=== PATIENT | male | born 1945 | race Caucasian/White ===

== ENCOUNTER 2019-10-04 12:23 | Outpatient (CLI) | payer OTHER, SELFPAY ==
--- NOTE | 2019-10-04 12:35 | CT_ITS ---
WS: [id number] CT ABDOMEN PELVIS TECHNIQUE: Noncontrast CT of the abdomen and pelvis with coronal and sagittal reformatted images. CLINICAL INFORMATION: F/U ON MASS OR CYST COMPARISON: CT January 01, [address] DLP: 1078.[address] scans at [facility] use at least one of these dose optimization techniques: automat ed exposure control; mA and/or kV adjustment per patient size (includes targeted exams where dose is matched to clinical indication); or iterative reconstruction. FINDINGS: FINDINGS: Normal liver. Normal portal vein and splenic vein. Tiny right hepatic cyst unchanged. Small splenule. Lung bases are well aerated. Normal gastroesophageal junction. Adrenal glands are normal. Normal pancreas. Adrenal glands are normal. Left renal cortical atrophy. Bilateral renal cysts largest in the right measuring 3.1 x 3.1 cm. No hydronephrosis. Smaller left re nal cysts the largest measuring 10 mm unchanged. Dense vascular calcification. Normal caliber abdomin al aorta. Dense mesenteric calcification at the celiac and SMA origins. Normal gallbladder. No periaortic lymphadenopathy. Normal caliber small and large bowel. No evidence of high-grade obstruction. Enlarged calcified prostate measuring 4.1 x 4.8 cm. Recommend correlation PSA. No inguinal lymphadenopathy. Moderate spondylitic changes lumbar spine. Vacuum disc phenomenon L 3-L5. CT/CT abdomen pelvis wo con [id number] IMPRESSION: 1. Bilateral renal cysts largest in the right measuring 3.1 x 3.1 cm a few mil limeters larger than previous 2. Stable small left renal cysts largest measuring 10 mm unchanged. 3. No hydronephrosis in either kidney. Stable left renal cortical atrophy 4. Markedly dense vascular calcification with dense calcification at the owen c and SMA origin. 5. Enlarged calcified prostate. Recommend correlation PSA. 6. Diffuse bladder wall thickening likely due to bladder outlet obstruction un changed. 7. Otherwise no significant changes from previous.
== END 2019-10-04 12:24 | disposition home or self-care (01) ==
PROVIDERS: Visit Provider Emergency Medicine Emergency Medical Services
DX: N28.1 Cyst of kidney, acquired (principal); N40.0 Benign prostatic hyperplasia without lower urinary tract symptoms
CPT/HCPCS: 74176

== ENCOUNTER 2020-04-30 09:49 | Emergency (ER) | payer OTHER, MEDICARE, SELFPAY ==
[2020-04-30 09:51] VITALS: BP 177/115; PULSE 73; RESP 16; TEMP 36.8; O2SAT 97; BMI 27.2
[2020-04-30 10:07] VITALS: BP 152/101; PULSE 80; RESP 20; O2SAT 95
--- NOTE | 2020-04-30 10:11 | CT_ITS ---
WS: [id number] CT CERVICAL SPINE HISTORY: R arm weakness, numbness TECHNIQUE: Contiguous 2.5 mm axial imaging performed through the entire cervical spine. Sagittal and coronal reformats also performed. All CT scans at [facility] use at least one of these do se optimization techniques: automated exposure control; mA and/or kV adjustment per patient size (inc ludes targeted exams where dose is matched to clinical indication); or iterative reconstruction. DLP: 839.14 mGy.cm COMPARISON: None available. Posterior cervical alignment is normal. Severe degenerative disc disease and osteophytosis throughout the cervical spine. No cervical spine fractures. C1 and C2 lateral masses are aligned. The odontoid is intact. Craniocervical junction is normally aligned. Marked bilateral facet joint arthritis with m ultilevel areas of moderate to severe central and foraminal stenosis. Unfused posterior arch of C1. Mild anterior wedging of T1 and T3. Age indeterminate fractures. No acute fracture line is identified . CT/CT cervical spin wo con* [id number] IMPRESSION: 1. No acute cervical spine fracture identified. 2. Moderate to severe multilevel central and foraminal stenosis due to combina tion of disc disease, osteophytosis and facet arthritis. 3. Mild anterior wedging of T1 and T3. Age indeterminate fractures.
--- NOTE | 2020-04-30 10:11 | CT_ITS ---
WS: [id number] CT HEAD NONCONTRAST HISTORY: R arm weakness TECHNIQUE: Contiguous axial imaging performed through the brain in 2.5 mm imaging. Bone and soft tiss ue windows. Sagittal and coronal reformats reviewed. All CT scans at [facility] use at ast one of these dose optimization techniques: automated exposure control; mA and/or kV adjustment pe r patient size (includes targeted exams where dose is matched to clinical indication); or iterative r econstruction. DLP: 850.5 mGy.cm COMPARISON: None available. No acute intracranial hemorrhage, midline shift or mass effect. Mild atrophy with moderate to severe chronic microvascular ischemic disease. Small lacunar infarcts i n the caudate heads. Small lacunar infarcts in the external capsules bilaterally. Ventricles: Normal size with no hydrocephalus. No inferior displacement of cerebellar tonsils. Paranasal sinuses: Postsurgical changes along the floor of the RIGHT orbit and superior maxillary sin us. Mastoid air cells: Well pneumatized. Calvarium and scalp: Skull is intact with no soft tissue edema or swelling. Dense calcification in the intracranial carotid arteries. CT/CT head wo con* [id number] IMPRESSION: 1. No acute intracranial hemorrhage or edema. 2. Mild atrophy with advanced chronic microvascular ischemic disease and bilat eral lacunar infarcts.
--- NOTE | 2020-04-30 10:15 | ECG_ITS ---
[facility] Test Date: 2020-04-30 Pat Name: Jaydon Yousif Department: Room: Gender: Male Director Of Student Services: : 1945 Requested By: Elio Claros Order Number: [id number] Reading MD: AVERY RAMACHANDRAN Measurements Intervals [place] Rate: 78 P: 28 NC: 165 QRS: 48 QRSD: 105 T: 28 QT: 399 QTc: 455 Interpretive Statements SINUS RHYTHM No previous ECG available for comparison Electronically Signed On 04-30-2020 18:17:34 BROOM BUILDER by AVERY RAMACHANDRAN [id number]
[2020-04-30 10:31] LABS: Basophils % 0.7 %; Eosinophils # 0.1 10^3/uL (0.0-0.8); Eosinophils % 2.2 %; Hematocrit 42.5 % (42.0-52.0); Hemoglobin 14.8 g/dL (11.7-16.6); Lymphocytes # 1.1 10^3/uL (0.8-4.8); Lymphocytes % 17.4 %; Mean Corpuscular HGB Conc 34.8 g/dL (30.0-36.0); Mean Corpuscular Hemoglobin 31.3 pg (28.0-34.0); Mean Corpuscular Volume 89.9 fL (80-94); Mean Platelet Volume 10.8 fL (7.4-10.4); Monocytes # 0.4 10^3/uL (0.2-0.9); Monocytes % 7.1 %; Neutrophils # 4.37 10^3/uL (1.8-7.7); Neutrophils % 72.3 %; Nucleated Red Blood Cells % 0 %; Platelet Count 153 10^3/cmm (130-400); Red Blood Count 4.73 10^6/uL (4.1-5.3); Red Cell Distribution Width 13.1 % (12.1-15.1)
[2020-04-30 10:32] LABS: INR 1.03 (0.8-1.2); Partial Thromboplastin Time 25.3 SECONDS (23.9-36.7)
[2020-04-30 10:39] LABS: Alanine Aminotransferase 13 U/L (0-41); Albumin Level 4.1 g/dL (3.5-5.2); Alkaline Phosphatase 80 IU/L (40-130); Aspartate Amino Transferase 16 U/L (0-40); Blood Urea Nitrogen 24 mg/dL (8-23); Calcium 8.8 mg/dL (8.5-10.5); Carbon Dioxide 24 mmol/L (22-29); Chloride 104 mmol/L (98-107); Globulin 2.5 g/dL (1.3-4.6); Glucose 132 mg/dL (65-115); Osmolality Calculated 292 mOsm/kg (285-295); Sodium 138 mmol/L (136-145); Total Bilirubin 0.8 mg/dL (0.15-1.2); Total Protein 6.6 g/dL (6.6-8.7)
[2020-04-30 10:45] LABS: Anion Gap 13.6 (5-19); Potassium 3.6 mmol/L (3.5-5.1)
--- NOTE | 2020-04-30 11:30 | ED_ITS ---
HPI - Neuro Symptoms/Deficit General: Chief Complaint: Neuro Symptoms/Deficit Stated Complaint: TREMORS/ UNSTEADY ON HIS FEET/VISION ISSUES Time Seen by Provider: 04/30/20 09:53 History of Present Illness: HPI Narrative: 74-year-old male comes in complaining of tremor and weakness in the right arm this is been going on for several weeks. Is also noticed a little bit of change in gait. His biggest issue is actually in the R arm. He denies difficulty with speech or swallowing. Is becoming progressively worse. He was seen at the [place] some plain film imaging was done. He has not seen a neurologist. He has not had any chest pain has not had any difficulty speech swallowing gait or balance. Onset (ago): week(s) Location: right arm Severity: moderate Quality: numb and tingling Relieving factors: none Exacerbating factors: none Context: gradual onset On Anticoagulants: No Associated symptoms: Deny chest pain, cough, diaphoresis, fevers/chills, headache(s), anorexia, malaise, nausea, seizures, short of breath, syncope, tingling, vertigo, vomiting or weakness Treatments Prior to Arrival: none Review of Systems Const: Denies: malaise or diaphoresis ENMT: Denies: throat pain, ear or mastoid pain, nasal discharge or nasal congestion Card: Denies: chest pain or syncope Resp: Denies: dyspnea, productive cough or non-productive cough GI: Denies: nausea or vomiting : Denies: flank pain, dysuria, urinary frequency or urinary urgency Skin/Breast: Denies: rash or pruritus Neuro: Denies: headache(s) or vertigo Physical Exam Const: COMMON NORMALS: no acute distress GENERAL APPEARANCE: cooperative and comfortable HENMT: COMMON NORMALS: normocephalic, atraumatic and hearing grossly normal bilaterally HEAD & SCALP: normocephalic and atraumatic Eye: COMMON NORMALS: Equal, round and reactive pupils present, EOMs intact bilaterally, conjunctivae normal and no scleral icterus CONJUNCTIVA: Yes conjunctivae normal PUPIL: Yes Equal, round and reactive pupils present Neck/C-Spine: COMMON NORMALS: full ROM, no lymphadenopathy, supple and no JVD Lymph: LYMPHATIC: no lymphadenopathy noted and no lymphedema noted Resp: COMMON NORMALS: normal respiratory effort, No retractions, No use of accessory muscles and clear to auscultation bilaterally AUSCULTATION: clear to auscultation bilaterally Cardio: COMMON NORMALS: no JVD, regular rate, regular rhythm and No murmurs present (Cardio) RATE: regular rate RHYTHM: regular rhythm GI: COMMON NORMALS: Soft to palpation and No hepatosplenomegaly present AUSCULTATION: Yes normoactive bowel sounds PALPATION: Yes Soft to palpation, No Tenderness to palpation present (GI), No Guarding due to palpation present (GI) and Yes No hepatosplenomegaly present Extremity: COMMON NORMALS: normal to inspection, capillary refill normal, no clubbing, cyanosis or edema, no calf tenderness and no pedal edema Skin: COMMON NORMALS: no rashes or lesions noted GENERAL SKIN EXAM: no rashes or lesions noted Course Vital Signs: Vital signs: Vital Signs Temperature 98.3 F 04/30/20 09:51 Pulse Rate 89 04/30/20 12:51 Respiratory Rate 18 04/30/20 12:51 Blood Pressure 160/86 04/30/20 12:51 Pulse Oximetry 96 04/30/20 12:51 MDM - Neuro Symptoms/Deficit MDM Narrative: Medical decision making narrative: CT head is normal his only symptoms are in his right arm he actually has some contractures that are difficult to get him to fully extend he has some sensation loss as well. Is been going on for months. Suspect is a cervical nerve root compression based on his presentation and his imaging findings of the CT of his neck. We will get him set up for an MRI and have him follow-up with Dr. Gotti and Dr. Yoon return if he has any worsening problems. Lab Data: Labs: Lab Results 04/30/20 04/30/20 04/30/20 Range/Units 09:58 09:58 09:58 WBC 6.0 (4.0-10.0) 10^3/ uL RBC 4.73 (4.1-5.3) 10^6/u L Hgb 14.8 (11.7-16.6) g/dL Hct 42.5 (42.0-52.0) % MCV 89.9 (80-94) fL MCH 31.3 (28.0-34.0) pg MCHC 34.8 (30.0-36.0) g/dL RDW 13.1 (12.1-15.1) % Plt Count 153 (130-400) 10^3/c mm MPV 10.8 H (7.4-10.4) fL Neut % (Auto) 72.3 % Lymph % (Auto) 17.4 % Canadian % (Auto) 7.1 % Eos % (Auto) 2.2 % Baso % (Auto) 0.7 % Neut # (Auto) 4.37 (1.8-7.7) 10^3/u L Lymph # (Auto) 1.1 (0.8-4.8) 10^3/u L Canadian # (Auto) 0.4 (0.2-0.9) 10^3/u L Eos # (Auto) 0.1 (0.0-0.8) 10^3/u L Baso # (Auto) 0.0 (0.0-0.1) 10^3/u L Nucleated RBC % (a uto) 0 % Nucleated RBCs # 0.0 /100WBC PT 13.80 (12.1-14.9) SECO NDS INR 1.03 (0.8-1.2) APTT 25.3 (23.9-36.7) SECO NDS Sodium 138 (136-145) mmol/L Potassium 3.6 (3.5-5.1) mmol/L Chloride 104 (98-107) mmol/L Carbon Dioxide 24 (22-29) mmol/L Anion Gap 13.6 (5-19) BUN 24 H (8-23) mg/dL Creatinine 1.6 H (0.7-1.2) mg/dL GFR Calculation Not Reportable Glucose 132 H (65-115) mg/dL Calculated Osmolal ity 292 (285-295) mOsm/k g Calcium 8.8 (8.5-10.5) mg/dL Total Bilirubin 0.8 (0.15-1.2) mg/dL AST 16 (0-40) U/L ALT 13 (0-41) U/L Alkaline Phosphata se 80 (40-130) IU/L Total Protein 6.6 (6.6-8.7) g/dL Albumin 4.1 (3.5-5.2) g/dL Globulin 2.5 (1.3-4.6) g/dL Urine Color (Yellow) Urine Appearance (CLEAR) Urine pH (5-7) Ur Specific Gravit y (1.005-1.030) Urine Protein (Negative) Urine Glucose (UA) (Normal) Urine Ketones (Negative) Urine Blood (Negative) Urine Nitrate (Negative) Urine Bilirubin (Negative) Urine Urobilinogen (Negative) mg/dL Ur Leukocyte Pam ase (Negative) Urine RBC (0-2) /hpf Urine WBC (0-5) /hpf Ur Squamous Epith Cells (0-5) /hpf Amorphous Sediment Urine Bacteria (NONE) /hpf Hyaline Casts /lpf Urine Mucus /hpf Urine Opiates Scre en (Negative) ng/mL Ur Barbiturates Sc reen (Negative) ng/mL Ur Phencyclidine S crn (Negative) ng/mL Ur Amphetamines Sc reen (Negative) ng/mL U Benzodiazepines Scrn (Negative) ng/mL Urine Cocaine Scre en (Negative) ng/mL U Marijuana (THC) Screen (Negative) ng/mL 04/30/20 04/30/20 Range/Units 11:45 11:45 WBC (4.0-10.0) 10^3/ uL RBC (4.1-5.3) 10^6/u L Hgb (11.7-16.6) g/dL Hct (42.0-52.0) % MCV (80-94) fL MCH (28.0-34.0) pg MCHC (30.0-36.0) g/dL RDW (12.1-15.1) % Plt Count (130-400) 10^3/c mm MPV (7.4-10.4) fL Neut % (Auto) % Lymph % (Auto) % Canadian % (Auto) % Eos % (Auto) % Baso % (Auto) % Neut # (Auto) (1.8-7.7) 10^3/u L Lymph # (Auto) (0.8-4.8) 10^3/u L Canadian # (Auto) (0.2-0.9) 10^3/u L Eos # (Auto) (0.0-0.8) 10^3/u L Baso # (Auto) (0.0-0.1) 10^3/u L Nucleated RBC % (a uto) % Nucleated RBCs # /100WBC PT (12.1-14.9) SECO NDS INR (0.8-1.2) APTT (23.9-36.7) SECO NDS Sodium (136-145) mmol/L Potassium (3.5-5.1) mmol/L Chloride (98-107) mmol/L Carbon Dioxide (22-29) mmol/L Anion Gap (5-19) BUN (8-23) mg/dL Creatinine (0.7-1.2) mg/dL GFR Calculation Glucose (65-115) mg/dL Calculated Osmolal ity (285-295) mOsm/k g Calcium (8.5-10.5) mg/dL Total Bilirubin (0.15-1.2) mg/dL AST (0-40) U/L ALT (0-41) U/L Alkaline Phosphata se (40-130) IU/L Total Protein (6.6-8.7) g/dL Albumin (3.5-5.2) g/dL Globulin (1.3-4.6) g/dL Urine Color Yellow (Yellow) Urine Appearance Clear (CLEAR) Urine pH 5 (5-7) Ur Specific Gravit y 1.020 (1.005-1.030) Urine Protein Trace (Negative) Urine Glucose (UA) Norm (Normal) Urine Ketones 1+ H (Negative) Urine Blood Neg (Negative) Urine Nitrate Negative (Negative) Urine Bilirubin Neg (Negative) Urine Urobilinogen 1 H (Negative) mg/dL Ur Leukocyte Pam ase Negative (Negative) Urine RBC 0-4 H (0-2) /hpf Urine WBC 0-4 H (0-5) /hpf Ur Squamous Epith Cells 0-4 H (0-5) /hpf Amorphous Sediment Not Reportable Urine Bacteria Trace (NONE) /hpf Hyaline Casts 0-4 H /lpf Urine Mucus 1+ /hpf Urine Opiates Scre en Negative (Negative) ng/mL Ur Barbiturates Sc reen Negative (Negative) ng/mL Ur Phencyclidine S crn Negative (Negative) ng/mL Ur Amphetamines Sc reen Negative (Negative) ng/mL U Benzodiazepines Scrn Negative (Negative) ng/mL Urine Cocaine Scre en Negative (Negative) ng/mL U Marijuana (THC) Screen Negative (Negative) ng/mL Discharge Plan Discharge Patient Disposition: Home Clinical Impression: Cervical nerve root compression, HTN (hypertension) Condition: Stable Prescriptions: New amlodipine 5 mg tablet 5 mg PO DAILY Qty: 30 RF: 0 lisinopril 10 mg tablet 10 mg PO DAILY Qty: 30 RF: 0 aspirin 81 mg tablet,delayed release (DR/EC) 81 mg PO DAILY Qty: 30 RF: 0 Discharge Orders: Discharge ED (Routine); Ordered 04/30/20 Ordered By: Elio Hunter Discharge Diet: Usual diet Discharge Activity: Increase activity as tolerated Patient Instructions: Opioid Safety Activity Restrictions/Additional Instructions: His management will call to set up a MRI of the head and neck. They will also help you arrange for follow-up appointments with Dr. Yoon and Dr. Gotti. Return if you have further problems. Recheck with your primary care doctor within a week to reevaluate blood pressure. Coding Level of Care Code ED Geophysical Operator for Kae Osuna
[2020-04-30 11:40] VITALS: BP 152/96; PULSE 86; RESP 20; O2SAT 99
[2020-04-30 12:17] LABS: Amphetamines Screen Urine Negative (Negative); Barbiturates Screen Urine Negative (Negative); Benzodiazepines Screen Urine Negative (Negative); Cocaine Screen Urine Negative (Negative); Opiate Screen Urine Negative (Negative); PCP Screen Urine Negative (Negative); THC Screen Urine Negative (Negative)
[2020-04-30 12:20] LABS: Blood Urine Neg (Negative); Glucose Urine UA Norm (Normal); Ketones Urine 1+ (Negative); Protein Urine Trace (Negative); Urine Appearance Clear (CLEAR); Urine Color Yellow (Yellow); pH Urine 5 (5-7)
[2020-04-30 12:21] LABS: Add Urine Microscopic? YES; Bacteria Urine TRACE /hpf; Bilirubin Urine Neg (Negative); Hyaline Casts Urine 0-4 /lpf; Leukocyte Esterase Urine Negative (Negative); Mucus Urine 1+ /hpf; Nitrate Urine Negative (Negative); RBC Urine 0-4 /hpf (0-2); Squamous Epithelial Cell Urine 0-4 /hpf (0-5); Urobilinogen Urine 1 mg/dL (Negative); WBC Urine 0-4 /hpf (0-5)
--- NOTE | 2020-04-30 12:32 | DCPLANNER ---
distribution warehouse manager was asked to schedule an out patient MRI of head and neck for patient and follow up appointments for patient with Dr. Gotti and Dr. Yoon. distribution warehouse manager faxed signed order to centralized scheduling, will call for appointment information. After the MRI is scheduled, caser in will call the offices of Dr. Gotti and Dr. Yoon and schedule follow up appointments for patient with both physicians.
[2020-04-30 12:51] VITALS: BP 160/86; PULSE 89; RESP 18; O2SAT 96
--- NOTE | 2020-05-01 15:47 | DCPLANNER ---
Addendum entered by Ida Kasper 05/11/20 12:05: position classification manager was told that the MRI scheduled for May 18 would need to be cancelled due to patient having metal in his body. position classification manager called centralized scheduling and cancelled the MRI. Original Note: Patient has an MRI of head and neck scheduled for Monday, May 18, 2020 the head is at 3:15 and the neck is scheduled for 1:45. Centralized scheduling will call patient with appointment information. position classification manager called the ortho clinic, spoke with Stefania, gave patients information to the clinic, informed clinic that it would need to be scheduled after the MRI / MRA that is scheduled for May 18. position classification manager called the office of Dr. Gotti, to speak with Nyla Harris, to give clinic patients information. position classification manager was unable to speak with Nyla, a voicemail was left with patients information for a follow up appointment.
--- NOTE | 2020-05-06 16:29 | DCPLANNER ---
Patient has a follow up appointment scheduled for May at 11:[address] Gotti. Clinic will call patient with appointment information. Patient has a follow up appointment scheduled for Monday, May 25, 2020 at 11:[address] Yoon at [facility]. Clinic will call patient with appointment information.
--- NOTE | 2020-06-03 15:14 | DCPLANNER ---
Patients appointments were cancelled.
== END 2020-04-30 12:53 | disposition home or self-care (01) ==
PROVIDERS: Emergency Provider Family Medicine
DX: G54.2 Cervical root disorders, not elsewhere classified (principal); I10 Essential (primary) hypertension; Z79.82 Long term (current) use of aspirin; R53.1 Weakness; Z79.899 Other long term (current) drug therapy
CPT/HCPCS: 70450; 72125; 80053; 80306; 81001; 85025; 85610; 85730; 93005; 99284

== ENCOUNTER 2020-05-11 10:31 | Inpatient (IN) | payer OTHER, MEDICARE, SELFPAY ==
[2020-05-11] VITALS (9 sets, daily range): BP systolic 132–183; BP diastolic 73–102; PULSE 70–82; RESP 16–20; TEMP 36.3–36.6; O2SAT 95–99; BMI 27.2
--- NOTE | 2020-05-11 11:16 | ED_ITS ---
HPI - Neuro Symptoms/Deficit General: Chief Complaint: Neuro Symptoms/Deficit Stated Complaint: SHAKING Time Seen by Provider: 05/11/20 10:42 History of Present Illness: HPI Narrative: 74-year-old male presents with complaints of right and left arm tremor and weakness. He was seen for this 10 days ago he had it for several weeks at that time head and neck CT were done head CT did not show anything acute or subacute neck CT showed some potential cervical disc disease. He was discharged home advised follow-up with primary care. We will schedule him for outpatient MRI of the head and neck which are not yet completed. he describes his symptoms as worsening, now including the R arm. He as fallen multiple times at home and is having gait instability/shuffling gait. Is also geting headaches at times. Onset (ago): week(s) Location: other (tremor right arm) History of same: Yes Quality: weak, numb and tingling Relieving factors: none Exacerbating factors: none Context: gradual onset On Anticoagulants: No Associated symptoms: Deny chest pain, cough, diaphoresis, fevers/chills, headache(s), anorexia, malaise, nausea, seizures, short of breath, syncope, tingling, vertigo, vomiting or weakness Treatments Prior to Arrival: other medication Review of Systems Const: Denies: malaise ENMT: Denies: throat pain, ear or mastoid pain, nasal discharge or nasal congestion Card: Denies: chest pain or syncope Resp: Denies: dyspnea, productive cough or non-productive cough GI: Denies: nausea : Denies: flank pain, dysuria, urinary frequency or urinary urgency Skin/Breast: Denies: rash or pruritus Neuro: Denies: headache(s) or vertigo PFSH ED PFSH: Medical History Bilateral renal cysts HTN (hypertension) Hyperlipemia Low back pain Sciatica Surgical History H/O knee surgery H/O partial nephrectomy History of facial surgery Family History Father , [place] CAD (coronary artery disease) Social History (Reviewed 05/14/20 @ 09:52 by MEHRDAD Bernstein Smoking and tobacco status: current every day smoker Alcohol intake: never Substance/Drug Use: former Date of last use: Long time ago. Marijuana. Household members: none Marital status: Current occupational status: retired Physical Exam Const: COMMON NORMALS: no acute distress GENERAL APPEARANCE: cooperative and comfortable ORIENTATION/CONSCIOUSNESS: Yes awake, Yes oriented to person, Yes oriented to place and Yes oriented to time HENMT: COMMON NORMALS: normocephalic, atraumatic and hearing grossly normal bilaterally HEAD & SCALP: normocephalic and atraumatic Neck/C-Spine: COMMON NORMALS: no JVD Resp: COMMON NORMALS: normal respiratory effort, No retractions, No use of accessory muscles and clear to auscultation bilaterally AUSCULTATION: clear to auscultation bilaterally Cardio: COMMON NORMALS: no JVD, regular rate, regular rhythm and No murmurs present (Cardio) RATE: regular rate RHYTHM: regular rhythm GI: COMMON NORMALS: Soft to palpation and No hepatosplenomegaly present AUSCULTATION: Yes normoactive bowel sounds PALPATION: Yes Soft to palpation, No Tenderness to palpation present (GI), No Guarding due to palpation present (GI) and Yes No hepatosplenomegaly present Extremity: COMMON NORMALS: normal to inspection, capillary refill normal, no clubbing, cyanosis or edema, no calf tenderness and no pedal edema Neuro: SENSORIUM/ORIENTATION: Yes oriented to person, Yes oriented to place and Yes oriented to time Skin: COMMON NORMALS: no rashes or lesions noted GENERAL SKIN EXAM: no rashes or lesions noted Course Vital Signs: Vital signs: Vital Signs Temperature 97.6 F 05/15/20 15:06 Pulse Rate 97 05/15/20 15:06 Respiratory Rate 17 05/15/20 15:06 Blood Pressure 155/92 05/15/20 15:06 Pulse Oximetry 94 05/15/20 15:06 MDM - Neuro Symptoms/Deficit MDM Narrative: Medical decision making narrative: Neurology consult done in the ER. I was concerned the patient may have a cervical stenosis neurology suspects something more central will admit and proceed with further work-up orders written Dr. Sesay attending. Lab Data: Labs: Lab Results 05/11/20 05/11/20 05/11/20 Range/Units 12:00 12:00 12:00 WBC 6.3 (4.0-10.0) 10^3/ uL RBC 4.85 (4.1-5.3) 10^6/u L Hgb 15.5 (11.7-16.6) g/dL Hct 44.0 (42.0-52.0) % MCV 90.7 (80-94) fL MCH 32.0 (28.0-34.0) pg MCHC 35.2 (30.0-36.0) g/dL RDW 13.5 (12.1-15.1) % Plt Count 153 (130-400) 10^3/c mm MPV 10.2 (7.4-10.4) fL Neut % (Auto) 74.9 % Lymph % (Auto) 16.2 % Meagher % (Auto) 7.0 % Eos % (Auto) 1.1 % Baso % (Auto) 0.5 % Neut # (Auto) 4.68 (1.8-7.7) 10^3/u L Lymph # (Auto) 1.0 (0.8-4.8) 10^3/u L Meagher # (Auto) 0.4 (0.2-0.9) 10^3/u L Eos # (Auto) 0.1 (0.0-0.8) 10^3/u L Baso # (Auto) 0.0 (0.0-0.1) 10^3/u L Nucleated RBC % (a uto) 0 % Nucleated RBCs # 0.0 /100WBC Sodium 139 (136-145) mmol/L Potassium 4.0 (3.5-5.1) mmol/L Chloride 102 (98-107) mmol/L Carbon Dioxide 26 (22-29) mmol/L Anion Gap 15.0 (5-19) BUN 23 (8-23) mg/dL Creatinine 1.8 H (0.7-1.2) mg/dL GFR Calculation Not Reportable Glucose 108 (65-115) mg/dL Calculated Osmolal ity 292 (285-295) mOsm/k g Calcium 9.0 (8.5-10.5) mg/dL Total Bilirubin 0.8 (0.15-1.2) mg/dL AST 18 (0-40) U/L ALT 13 (0-41) U/L Alkaline Phosphata se 74 (40-130) IU/L Total Protein 6.9 (6.6-8.7) g/dL Albumin 4.2 (3.5-5.2) g/dL Globulin 2.7 (1.3-4.6) g/dL Vitamin B12 (232-1245) pg/mL Folate 11.2 (4.5-32.2) ng/mL Urine Color (Yellow) Urine Appearance (CLEAR) Urine pH (5-7) Ur Specific Gravit y (1.005-1.030) Urine Protein (Negative) Urine Glucose (UA) (Normal) Urine Ketones (Negative) Urine Blood (Negative) Urine Nitrate (Negative) Urine Bilirubin (Negative) Urine Urobilinogen (Negative) mg/dL Ur Leukocyte Pam ase (Negative) Urine RBC (0-2) /hpf Urine WBC (0-5) /hpf Ur Squamous Epith Cells (0-5) /hpf Amorphous Sediment Urine Bacteria (NONE) /hpf Hyaline Casts /lpf 05/11/20 05/11/20 Range/Units 12:00 13:27 WBC (4.0-10.0) 10^3/ uL RBC (4.1-5.3) 10^6/u L Hgb (11.7-16.6) g/dL Hct (42.0-52.0) % MCV (80-94) fL MCH (28.0-34.0) pg MCHC (30.0-36.0) g/dL RDW (12.1-15.1) % Plt Count (130-400) 10^3/c mm MPV (7.4-10.4) fL Neut % (Auto) % Lymph % (Auto) % Meagher % (Auto) % Eos % (Auto) % Baso % (Auto) % Neut # (Auto) (1.8-7.7) 10^3/u L Lymph # (Auto) (0.8-4.8) 10^3/u L Meagher # (Auto) (0.2-0.9) 10^3/u L Eos # (Auto) (0.0-0.8) 10^3/u L Baso # (Auto) (0.0-0.1) 10^3/u L Nucleated RBC % (a uto) % Nucleated RBCs # /100WBC Sodium (136-145) mmol/L Potassium (3.5-5.1) mmol/L Chloride (98-107) mmol/L Carbon Dioxide (22-29) mmol/L Anion Gap (5-19) BUN (8-23) mg/dL Creatinine (0.7-1.2) mg/dL GFR Calculation Glucose (65-115) mg/dL Calculated Osmolal ity (285-295) mOsm/k g Calcium (8.5-10.5) mg/dL Total Bilirubin (0.15-1.2) mg/dL AST (0-40) U/L ALT (0-41) U/L Alkaline Phosphata se (40-130) IU/L Total Protein (6.6-8.7) g/dL Albumin (3.5-5.2) g/dL Globulin (1.3-4.6) g/dL Vitamin B12 544 (232-1245) pg/mL Folate (4.5-32.2) ng/mL Urine Color Dark yellow (Yellow) Urine Appearance Hazy A (CLEAR) Urine pH 6 (5-7) Ur Specific Gravit y 1.010 (1.005-1.030) Urine Protein 1+ H (Negative) Urine Glucose (UA) Norm (Normal) Urine Ketones Negative (Negative) Urine Blood Trace H (Negative) Urine Nitrate Negative (Negative) Urine Bilirubin 1+ H (Negative) Urine Urobilinogen 1 H (Negative) mg/dL Ur Leukocyte Pam ase Negative (Negative) Urine RBC 0-4 H (0-2) /hpf Urine WBC None (0-5) /hpf Ur Squamous Epith Cells 0-4 H (0-5) /hpf Amorphous Sediment Not Reportable Urine Bacteria Trace (NONE) /hpf Hyaline Casts 5-10 H /lpf Discharge Plan Discharge Patient Disposition: Admitted As Inpatient Admit Provider: Andrew Sesay Clinical Impression: Myoclonus, Encephalopathy acute, HTN (hypertension), Carotid stenosis Condition: Stable Coding Level of Care Code ED Diamond Setter Apprentice for g Fwd Exam Comprehensive
--- NOTE | 2020-05-11 11:24 | CT_ITS ---
WS: [id number] CT HEAD NONCONTRAST HISTORY: R sided weakness TECHNIQUE: Contiguous axial imaging performed through the brain in 2.5 mm imaging. Bone and soft tiss ue windows. Sagittal and coronal reformats reviewed. All CT scans at [facility] use at ast one of these dose optimization techniques: automated exposure control; mA and/or kV adjustment pe r patient size (includes targeted exams where dose is matched to clinical indication); or iterative r econstruction. DLP: 868.26 mGy.cm COMPARISON: 04/30/2020 No acute intracranial hemorrhage, midline shift or mass effect. Mild atrophy with moderate chronic microvascular ischemic disease. Numerous small lacunar infarcts in the basal ganglia and internal capsules. Ventricles: Normal size with no hydrocephalus. Moderate atherosclerotic plaque within the intracranial carotid arteries. Vertebral artery atheroscle rosis also noted. Paranasal sinuses: Near complete opacification of the RIGHT maxillary sinus Mastoid air cells: Well pneumatized. Calvarium and scalp: Prior repair of the floor LEFT orbit. CT/CT head wo con* [id number] IMPRESSION: 1. No acute intracranial hemorrhage or edema. 2. Mild atrophy with moderate chronic microvascular ischemic changes and prior lacunae. No interval change. 3. RIGHT maxillary sinus disease.
--- NOTE | 2020-05-11 11:24 | ECG_ITS ---
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 Measurements Intervals [place] Rate: 73 P: 56 NV: 150 QRS: 64 QRSD: 105 T: 44 QT: 404 QTc: 448 Interpretive Statements SINUS RHYTHM Compared to ECG 04/30/2020 10:33:13 No significant changes Electronically Signed On 05-11-2020 18:52:25 PRINTING GRAY CLOTH TENDER by Dilshad Alvarez M.D. [id number]
--- NOTE | 2020-05-11 12:03 | CT_ITS ---
WS: [id number] CT ANGIOGRAM CEREBRAL AND CAROTID ARTERIES HISTORY: R sided weakness TECHNIQUE: CT angiogram is performed of the carotid and cerebral arteries. During arterial injection imaging is obtained from the skull vertex to the aortic arch in 1.25 mm imaging. Coronal and sagittal reformats are submitted. Additional multi planar reformats of the carotid and cerebral arteries are submitted, MIP imaging also reviewed. NASCET criteria utilized. All CT scans at [facility] use at least one of these dose optimization techniques: automated exposure control; mA and/or kV ad justment per patient size (includes targeted exams where dose is matched to clinical indication); or iterative reconstruction. CONTRAST: Visipaque 320; 95 mL IV. DLP: 2413.45 mGy.cm COMPARISON: MRI brain 05/11/2020 Carotid Angiogram: Right carotid: Common carotid artery: Origin of the RIGHT common carotid artery is narrowed 22%. Internal carotid artery: Calcified plaque at the bifurcation. Stenosis 50%. External carotid artery: Patent. Left carotid: Common carotid artery: Bovine arch. No stenosis. Internal carotid artery: Heavy nearly circumferential calcified plaque at the bifurcation. Stenosis m easured at 65%. External carotid artery: Patent. Right vertebral artery: Unremarkable. Left vertebral artery: Mildly dominant LEFT vertebral artery with a few scattered calcified plaques. Subclavian arteries: Moderate amount of calcified plaque in the subclavian arteries bilaterally. RIGH T slightly greater than LEFT with no high-grade stenosis. Upper thorax: Normal. Thyroid gland: Normal. Osseous structures: Multilevel moderate to severe spondylitic changes in the cervical spine. Mild ant erior wedging of T7, C1 and C3. CEREBRAL ANGIOGRAM: Intracranial vertebral arteries: Normal with no significant atherosclerosis. Basilar artery: No significant stenosis or occlusion. No aneurysm. Intracranial Internal carotid arteries: Mild diffuse scattered plaque. More significant plaque in the cavernous and supraclinoid carotid arteries. Greatest on the LEFT. Stenoses approaching 50-60% bilat erally. Middle cerebral arteries: Normal. Anterior cerebral arteries and ACOM: Normal. Posterior cerebral arteries and PCOM's: Normal. Dural venous sinuses are normally enhancing. Mastoid air cells: Normal. Paranasal sinuses: Bilateral mucoperiosteal thickening in the sinus cavities. Calvarium: No fracture. Mesh fixation along the floor of the LEFT orbit. CT/CT angio headneck* [id number] IMPRESSION: 1. Moderate calcified plaque at the carotid bifurcations. 2. LEFT ICA stenosis 65%. 3. RIGHT ICA stenosis 92%. 4. Bilateral cavernous sinus and supraclinoid atherosclerotic plaque. Stenosis 50-60%, greatest on the LEFT. 5. Bovine arch.
[2020-05-11 12:11] LABS: Basophils % 0.5 %; Eosinophils # 0.1 10^3/uL (0.0-0.8); Eosinophils % 1.1 %; Hemoglobin 15.5 g/dL (11.7-16.6); Lymphocytes % 16.2 %; Mean Corpuscular HGB Conc 35.2 g/dL (30.0-36.0); Mean Corpuscular Volume 90.7 fL (80-94); Mean Platelet Volume 10.2 fL (7.4-10.4); Monocytes # 0.4 10^3/uL (0.2-0.9); Neutrophils # 4.68 10^3/uL (1.8-7.7); Neutrophils % 74.9 %; Nucleated Red Blood Cells % 0 %; Platelet Count 153 10^3/cmm (130-400); Red Blood Count 4.85 10^6/uL (4.1-5.3); Red Cell Distribution Width 13.5 % (12.1-15.1); White Blood Count 6.3 10^3/uL (4.0-10.0)
[2020-05-11 12:34] LABS: Alanine Aminotransferase 13 U/L (0-41); Albumin Level 4.2 g/dL (3.5-5.2); Alkaline Phosphatase 74 IU/L (40-130); Aspartate Amino Transferase 18 U/L (0-40); Blood Urea Nitrogen 23 mg/dL (8-23); Carbon Dioxide 26 mmol/L (22-29); Chloride 102 mmol/L (98-107); Globulin 2.7 g/dL (1.3-4.6); Glucose 108 mg/dL (65-115); Osmolality Calculated 292 mOsm/kg (285-295); Sodium 139 mmol/L (136-145); Total Bilirubin 0.8 mg/dL (0.15-1.2); Total Protein 6.9 g/dL (6.6-8.7)
--- NOTE | 2020-05-11 13:08 | PC.NURSE ---
patient to CT
[2020-05-11] MEDS: iodixanol 320 mg/mL 100mL Btl IV (13:15)
[2020-05-11 13:42] LABS: Add Urine Microscopic? YES; Bilirubin Urine 1+ (Negative); Blood Urine Trace (Negative); Glucose Urine UA Norm (Normal); Ketones Urine Negative (Negative); Leukocyte Esterase Urine Negative (Negative); Nitrate Urine Negative (Negative); Protein Urine 1+ (Negative); Urine Appearance Hazy (CLEAR); Urine Color Dark Yellow (Yellow); Urobilinogen Urine 1 mg/dL (Negative); pH Urine 6 (5-7)
[2020-05-11 13:49] LABS: Add Urine Culture? No; Bacteria Urine TRACE /hpf; RBC Urine 0-4 /hpf (0-2); Squamous Epithelial Cell Urine 0-4 /hpf (0-5)
--- NOTE | 2020-05-11 17:55 | PM.CONSULT ---
Providers/Reason For Consult Consulting Physican/Specialty*: Dr. Hunter, emergency department and Dr. Sesay, hospitalist Reason for Consult*: Severe tremor and new inability to ambulate Attending Physician: Andrew Sesay Primary Care Provider: [place] History of Present Illness History of Present Illness Jaydon Yousif is a 74 year old man who presents with vigorous myoclonic tremor, severe ataxia and anterograde amnesia for the last 3 to 4 weeks. The patient is not a good historian as his memory is very poor. He notes his walking is been a little off for the last several months but he can no longer ambulate. He is incontinent because he cannot get to the toilet and cannot unbutton his pants. He knows that he can use his right arm for some time but now he is having trouble using his left arm as well. He left the number of Kamilla friend, who has known him since he was 8 years old and I took a history from her. Kamilla says that as far as she knows Jaydon has been having trouble with his memory for 3 weeks. He has been very forgetful. He has had trouble walking for 4 or 5 months and she is seen him stumble but she did not realize that he was falling. His friend brought him in because he could not walk. Kamilla says that his walking is bit a little off for a long time, maybe a couple of years but it changed a lot in the last 4 to 5 months such that he would stumble all of the time and now he can no longer ambulate. His right hand is been useless for 3 or 4 months and now he is not able to move his left side. He has been to the [facility] because he thought maybe he had Parkinson's disease but they have not treated him with anything but aspirin. He complains that he cannot see. His son said that 3 months ago he was riding his [employer]. He is retired from a variety of jobs. Review of Systems Const: Denies: fever(s), chills or body aches Eyes: Reports: change in vision (Cannot see. He finds this hard to describe.) and blurry vision; Denies: eye discomfort Card: Denies: chest pain, palpitations or swelling of feet/ankles Resp: Denies: dyspnea GI: Denies: abdominal pain, nausea or vomiting : Denies: difficulty urinating Musc: Reports: neck pain and back pain Neuro: Reports: numbness in extremities, weakness in extremities, lack of coordination, difficulty walking, dizziness and involuntary movements; Denies: headache(s) or vertigo Psych: Denies: anxiety or depression Meds/Allergies Home Medications and Allergies Home Medications Medication Instructions Recorded Confirmed Last Taken Type amlodipine 10 mg PO QAM 05/11/20 05/11/20 05/11/20 History atenolol 50 mg PO QAM 05/11/20 05/11/20 05/11/20 09:00 History 100 mg lisinopril 40 mg PO QAM 05/11/20 05/11/20 05/11/20 History Allergies Allergy/AdvReac Type Severity Reaction Status Date / Time No Known Allergies Allergy Verified 05/11/20 12:05 Vitals/I&O/Wt Last Vital Signs Temp 97.3 F L 05/11/20 10:37 Pulse 76 05/11/20 17:53 Resp 18 05/11/20 17:53 BP 183/102 05/11/20 17:53 Pulse Ox 99 05/11/20 17:53 05/11/20 05/11/20 05/11/20 06:59 14:59 22:59 Output Total 100 / 100 Balance -100 / -100 Weight last 48 hrs Weight 190 lb Physical Exam Narrative: EXAM NARRATIVE: GENERAL: The patient was thin wearing hospital acquired pants. MENTAL STATUS: [Orientation was full to 10 of 10 questions of orientation]. He had mild speech hesitation.. [No difficulty following a complex command]. [The affect was euthymic]. He recalled 1 of 3 objects after brief distraction. He could not perform serial sevens or spell the word world but he has 6 grade education. He complains that his memory is gone. CRANIAL NERVES: Visual acuity was not tested. Visual duron were full to confrontation, direct and consensual. Extraocular movements were full without nystagmus. Both slow pursuit and saccadic eye movements were normal. PERRLA. Face was symmetric at rest and with grimace. [Facial sensation was intact in all three distributions of the fifth cranial nerve bilaterally to touch]. . Tongue and palate were midline at rest and with protrusion of the tongue and elevation of the palate. Shoulders were symmetric at rest and with shoulder shrug. MOTOR: He has severe dystonic posturing of the right arm and hand. I cannot fully resolve his flexed position of the hand and arm. When he is distracted he develops an extremely high amplitude 2 Hz tremor in the right arm. He has myoclonus induced by movement. When I asked him to climb onto the stretcher he develops diffuse high amplitude polymyoclonus. SENSATION: [Pin, touch, vibration and proprioception were intact in the four extremities distally]. COORDINATION: Stance was unstable with the eyes open and he fell backward when I let go of him. He has a wide base. Sguf-vdur-hnkp was performed fairly smoothly on both sides. Pdtowz-fqfu-rsjvwg in the left arm brings out a high amplitude lcvi-dz-pqip tremor. He cannot extend the right arm due to dystonic posturing. Diffuse high amplitude polymyoclonus superimposed. DEEP TENDON REFLEXES: Diffusely areflexic toes upgoing bilaterally GAIT: He is unable to walk. He has severe midline instability and it takes 2 people to hold him upright. HEENT: Normocephalic without dysmorphic features. Conjunctivae were not injected and sclerae were nonicteric. NECK: Carotid upstroke was strong bilaterally without bruits. The thyroid was not enlarged and there were no palpable lymph nodes. CHEST: Clear to auscultation. CARDIOVASCULAR: The heart sounds were normal without murmur or gallop. Regular rate and rhythm. Peripheral pulses were 2+ throughout in the distal extremities. EXTREMITIES: There was no edema or cyanosis. The skin was unremarkable. The spine exhibited normal thoracic kyphosis and normal lumbar lordosis without deformities. Data Other Data: Attestation for Other Data: I personally reviewed and interpreted the following: (CT head shows multiple recurrence in the caudate. Diffuse white matter disease) Other data: Cervical stenosis at C4-5 and C5-[address] A&P Assessment and plan (1) Myoclonus: This 74-year-old man presents with rapid onset of a gait disorder, myoclonus, right upper extremity dystonia and polymyoclonus. This constellation of symptoms is of concern for slow virus disease. On the other hand, the time course is somewhat long for that disorder and so other rapidly progressive neurodegenerative diseases associated with upper extremity dystonia and myoclonic tremor must be considered including Parkinson associated disorders such as Lewy body disease, multiple systems atrophy, cortical basal degeneration. I have checked with our lab and we do not have the capacity to acquire CSF and a suspicion of spongiform encephalopathy. The patient is unable to have an MRI because of previous head surgery and embedded metal. Plan on EEG, trial of levodopa carbidopa. I talked with Dr. Hunter and with Dr. Mena. Further evaluation as indicated. Physical and Occupational Therapy. Status: Acute (2) Dystonia: Status: Acute (3) Encephalopathy acute: Status: Acute Consult Attestations Medical Necessity Statement: Rapidly progressive gait disorder and encephalopathy Time Spent in Patient Care: Greater than 35 minutes Coding Level of Care Code Acute Deaf Teacher for [facility] F[facility] Diagnoses Myoclonus G25.3 Dystonia G24.9 Encephalopathy acute G93.40
--- NOTE | 2020-05-11 18:39 | PM.HP ---
Providers/Chief Complaint Admitting Physician: Andrew Sesay Chief Complaint: SHAKING History of Present Illness Pleasant 74-year-old gentleman presents with progressive symptoms of spasticity, tremor, with symptoms starting in the right arm, but now progressing also to left side, persistently declining ability to walk, with small shuffling steps, recently having to use a cane, but even with that having difficulty. He denies any history of neurodegenerative disorder. Denies any history of cardiovascular disease or stroke. Denies any family history of neurodegenerative disease. Reports history of marijuana use, but denies any other drug use beyond that. He is a current cigarette smoker. Denies alcohol use. He states otherwise has been at baseline state of health apart from occasional sciatica bothering him. But on additional questioning he does also note he has been losing his memory, and gradually also complaining of visual loss. Stating he could not read small print on opposite wall of the room, although could read larger heading print of the TV channel guide. He was previously assessed in ER on 04/30, and since then his symptoms have progressed. At the time he underwent CT cervical spine with finding of moderate to severe multilevel central and foraminal stenosis due to combination of disc disease, osteophytosis and facet arthritis. Mild anterior wedging of T1 and T3. Age indeterminate fractures. He was referred for outpatient MRI brain, also referred to spine surgery, however, was unable to attend his appointment, and states also is unable to have MRI done due to history of facial reconstruction surgery with metal plate with instructions he is not to have MRI in the future. CT of the head during prior admission and currently with mild atrophy with moderate chronic microvascular ischemic changes, prior lacunar in the. No interval change. Right maxillary sinus disease noted. During this admission CT angiogram head and neck with moderate calcified plaque at the carotid bifurcations, left ICA stenosis 65%, right ICA stenosis 92%. Bilateral cavernous sinus and supraclinoid atherosclerotic plaque. Stenosis 50-60% greatest on the left. Bovine arch. Review of Systems Const: Denies: fever(s), chills, body aches or malaise Eyes: Reports: change in vision (Gradual worsening in eyesight); Denies: blind spots, eye discomfort, eye discharge, eye redness or seeing flashes ENMT: Denies: throat pain, oral sores or ear or mastoid pain Card: Denies: chest pain, edema, pre-syncope or dyspnea on exertion Resp: Denies: dyspnea, productive cough, change in phlegm color or hemoptysis GI: Reports: constipation and other (Past history of chronic diarrhea, recently more constipation); Denies: abdominal pain, nausea, vomiting, diarrhea, fecal incontinence, hematochezia or melena : Denies: flank pain, difficulty urinating, urinary frequency or hematuria Musc: Reports: other (Tremor, spasticity, inability to grasp/hold objects, worsening gait); Denies: back pain, joint swelling or joint redness Skin/Breast: Denies: rash, sores or new lesions Neuro: Reports: numbness in extremities, difficulty walking, frequent falls and involuntary movements; Denies: headache(s), weakness in extremities, dizziness, vertigo, confusion or seizure-like activity Endo: Denies: polyuria or polydipsia Cyril/Lymph: Denies: easy bleeding or purpura All/Imm: Denies: urticaria, throat swelling or tongue swelling Medications/Allergies Home Medications Medication Instructions Recorded Confirmed Last Taken Type amlodipine 10 mg PO QAM 05/11/20 05/11/20 05/11/20 History atenolol 50 mg PO QAM 05/11/20 05/11/20 05/11/20 09:00 History 100 mg lisinopril 40 mg PO QAM 05/11/20 05/11/20 05/11/20 History Allergies Allergy/AdvReac Type Severity Reaction Status Date / Time No Known Allergies Allergy Verified 05/11/20 12:05 PFSH Acute PFSH: Medical History (Updated 05/11/20 @ 19:05 by Andrew Sesay MD) Bilateral renal cysts HTN (hypertension) Hyperlipemia Low back pain Sciatica Surgical History H/O knee surgery H/O partial nephrectomy History of facial surgery Family History Father , OR CAD (coronary artery disease) Social History Smoking and tobacco status: current every day smoker Alcohol intake: never Substance/Drug Use: former Date of last use: Long time ago. Marijuana. Household members: none Marital status: Current occupational status: retired Vitals/I&O/Wt Last Vital Signs Temp 97.3 F L 05/11/20 10:37 Pulse 72 05/11/20 17:54 Resp 20 H 05/11/20 17:54 BP 145/73 05/11/20 17:54 Pulse Ox 98 05/11/20 17:54 05/11/20 05/11/20 05/11/20 06:59 14:59 22:59 Output Total 100 / 100 Balance -100 / -100 Weight last 48 hrs Weight 86.183 kg Physical Exam Const: COMMON NORMALS: no acute distress, patient oriented x3 and alert GENERAL APPEARANCE: cooperative ORIENTATION/CONSCIOUSNESS: Yes awake HENMT: COMMON NORMALS: oropharynx normal Neck/C-Spine: COMMON NORMALS: no JVD Resp: COMMON NORMALS: normal respiratory effort and clear to auscultation bilaterally AUSCULTATION: clear to auscultation bilaterally Cardio: COMMON NORMALS: no JVD, regular rhythm, S1 normal heart sound present, S2 normal heart sound present and No murmurs present (Cardio) RHYTHM: regular rhythm HEART SOUNDS: S1 normal heart sound present and S2 normal heart sound present GI: COMMON NORMALS: Normal to inspection, nondistended, normoactive bowel sounds present, Soft to palpation and non-tender PALPATION: Yes Soft to palpation Extremity: COMMON NORMALS: no joint enlargement and no pedal edema Neuro: COMMON NORMALS: patient oriented x3 and moves all extremities MENINGEAL SIGNS: Yes no meningeal signs CRANIAL NERVES: Yes CN normal except as noted and Yes other SPEECH: speech normal GAIT: Yes Unable to assess gait SENSORY EXAM: Yes extremities (Paresthesia/sensory loss distal extremities, although cannot identify SL) and Abnormal double simultaneous stimulation for sensation Double similtaneous stimulation abnormal: right-sided extinction MOTOR EXAM: Abnormal muscle tone present spastic: right upper extremity (All extremities mild, but worst RUE) OTHER: Visual duron full to confrontation. No nystagmus. Skin: COMMON NORMALS: no rashes or lesions noted GENERAL SKIN EXAM: no rashes or lesions noted OTHER: Tattoos. Data : 05/11/20 12:00 05/11/20 12:00 A&P Assessment and plan (1) Myoclonus: Appears to have progressive and disabling symptoms with myoclonus, dystonia, gait disturbance, sensory abnormality, also memory loss, declining visual acuity. Appreciate neurological assessment. MRI was considered discussed with patient, unfortunately with history of facial reconstruction surgery with metal plate MRI is not a possibility. As per discussion with him and neurology we are requesting EEG. He is also started on trial of levodopa carbidopa. With concern due to the chronology of his symptoms that they may be related to neurodegenerative disorder like CJD, which was discussed with him, additional studies may be beneficial, although we do not have the facilities to safely obtain and examined CSF. EEG this for now would be the initial study, and depending on the results additional assessments to follow. Will assess B12, folic acid. PT and OT is requested. Status: Acute (2) Dystonia: Status: Acute (3) Encephalopathy acute: Status: Acute (4) Carotid stenosis: Incidentally noted carotid stenosis, right side 92% or 22%, will need to confirm with radiology, left side 65%. Status: Acute (5) Spinal stenosis: Cervical spinal stenosis noted with moderate to severe multilevel central and foraminal stenosis due to combination of disc disease, osteophytosis and facet arthritis. Mild anterior wedging T1 and T3. Maintain outpatient appointment with Ortho spine surgery. Status: Acute (6) HTN (hypertension): Monitor blood pressures. Continue amlodipine, atenolol, lisinopril. Status: Acute Attestations Medical Necessity Statement*: Admission of over 2 midnights ago needed for assessment of management of rapidly progressive dystonia, clonus, loss of functional capacity and gait disturbance, rapidly progressive memory loss. Coding Level of Care Code Acute Injection Mold Tooling Technician for g Fwd Exam Comprehensive Diagnoses Myoclonus G25.3 Dystonia G24.9 Encephalopathy acute G93.40 Carotid stenosis I65.29 Spinal stenosis M48.00 HTN (hypertension) I10
[2020-05-11] MEDS: heparin 5,000 unit/mL INJ 1 mL 5000 UNIT SUBCUT (19:42)
[2020-05-11] MEDS: D5-NS 0.45% + KCL 20 mEq 20 MEQ/1,000 ML BAG 100 MEQ IV (19:43)
[2020-05-11 23:08] LABS: Folate Level 11.2 ng/mL (4.5-32.2)
[2020-05-11 23:09] LABS: Vitamin B12 544 pg/mL (232-1245)
[2020-05-12 01:00] VITALS: BP 180/90; PULSE 79; RESP 18; TEMP 36.6; O2SAT 96
[2020-05-12] MEDS: heparin 5,000 unit/mL INJ 1 mL 5000 UNIT SUBCUT ×3 (03:59→18:39)
[2020-05-12] MEDS: D5-NS 0.45% + KCL 20 mEq 20 MEQ/1,000 ML BAG 100 MEQ IV ×2 (04:00→13:10)
[2020-05-12 04:14] VITALS: BP 177/86; PULSE 95; RESP 18; TEMP 36.7; O2SAT 93
[2020-05-12] MEDS: haloperidol inj 5 mg/mL INJ 1 mL 2 MG IM ×2 (05:52→15:08)
--- NOTE | 2020-05-12 06:18 | PC.NURSE ---
pt increasingly confused and agitated through out the night, pulling out multiple ivs, getting out of bed, getting physically aggressive with nursing staff and throwing things at bed one. Notified Weston and and recieved 2mg order of haldol. Pt currently in bed watching weather channel after strenuous coaxing. Due to pt and roomate safety i will request 1:1.
[2020-05-12 07:43] VITALS: BP 133/87; PULSE 92; RESP 17; TEMP 36.8; O2SAT 97
[2020-05-12] MEDS: carbidopa-levodopa 25-100mg Tablet 1 EACH PO ×3 (08:11→18:39)
--- NOTE | 2020-05-12 09:47 | PC.NURSE ---
Patient to go to MRI of right shoulder today at 10:15. Right knee minimally swollen. Lower right leg reddened. Right leg above the knee is the only pain reported and Dr. Amato rounded and explained it being muscle pain. Patient up to chair at this time. Refused to lay in bed to elevate extremity and removed his ice placed on his knee. Will get recliner and take chair out of room. Educated patient that Dr ordered ICE and elevation of extremity and the healing process.
--- NOTE | 2020-05-12 09:49 | PC.CHAP ---
Pastoral Care Encounter/Spiritual Assessment Type of Contact [] Declined cured meats supervisor visit [] Patient/Family/Request visit [] Outpatient visit [] Follow-up visit [] Physician referral [] Code/Alert [x] Routine visit [] Staff referral [] Actively dying [] Patient sleeping [] Family support [] [] Out of room [] Palliative care [] [x] Receiving care in room [] Pre-surgical visit [] Trauma [] Long length of stay [] ICU visit [] Other: Relational/Emotional Strength [] Patient feels connected with others/family/visitors/staff [] Distress [] Loneliness/isolation [] Abandonment Spirituality of Patient [] Person of Gena [] Attends Mosque of their Gena [] Believes in Prayer [] Reads Bible or Muslim materials [] There are Spiritual issues to be addressed Pig Farm Manager Interventions [] Prayer [] Active listening [] Non-anxious presence [] Spiritual/emotional support [] Crisis/trauma care [] Spiritual counseling [] Bereavement support [] Provided bereavement packet [] Provided Bible/devotional materials [] Provided toy/stuffed animal, coloring book to patient or family member [] Provided Communion [] Anointing/[place] [] Salvation [] Completed spiritual assessment [] Other: Impact on Illness or Injury [] Angry [] Fearful [] Anxious [] Often cries [] Exhaustion [] Unable to work [] Unable to attend restorationist [] Unable to walk/stand [] Unable to read [] Unable to drive [] Unable to eat/drink [] Unable to sleep [] Unable to be with family [] Patient intubated [] Other: Summary Time spent with patient
--- NOTE | 2020-05-12 09:51 | PC.NURSE ---
Reported overnight that patient was aggressive and received Haldol one time order per overnight physician. One-on-one present for patient safety. Patient attempts to get out of bed without help and is unsteady upon standing. Gait belt applied and patient transfered via wheelchair to Neuro for EEG. Patient calm and cooperative this morning. Patient alert to name and dated of but nothing else. He is confused to place and occasionally has to be reminded that he is safe.
[2020-05-12 11:08] LABS: Basophils % 0.5 %; Eosinophils % 0.4 %; Hematocrit 42.9 % (42.0-52.0); Hemoglobin 15.3 g/dL (11.7-16.6); Lymphocytes # 1.3 10^3/uL (0.8-4.8); Lymphocytes % 16.3 %; Mean Corpuscular HGB Conc 35.7 g/dL (30.0-36.0); Mean Corpuscular Hemoglobin 32.1 pg (28.0-34.0); Mean Corpuscular Volume 89.9 fL (80-94); Mean Platelet Volume 10.3 fL (7.4-10.4); Monocytes # 0.5 10^3/uL (0.2-0.9); Monocytes % 6.6 %; Neutrophils # 6.09 10^3/uL (1.8-7.7); Nucleated Red Blood Cells % 0 %; Platelet Count 166 10^3/cmm (130-400); Red Blood Count 4.77 10^6/uL (4.1-5.3); Red Cell Distribution Width 13.2 % (12.1-15.1)
[2020-05-12 11:34] VITALS: BP 172/94; PULSE 92; RESP 17; TEMP 37.1; O2SAT 96
[2020-05-12 11:38] LABS: Alanine Aminotransferase < 5 U/L (0-41); Albumin Level 4.4 g/dL (3.5-5.2); Alkaline Phosphatase 79 IU/L (40-130); Anion Gap 17.1 (5-19); Aspartate Amino Transferase 27 U/L (0-40); Blood Urea Nitrogen 26 mg/dL (8-23); Calcium 9.2 mg/dL (8.5-10.5); Carbon Dioxide 22 mmol/L (22-29); Chloride 103 mmol/L (98-107); Globulin 2.7 g/dL (1.3-4.6); Glucose 157 mg/dL (65-115); Osmolality Calculated 294 mOsm/kg (285-295); Potassium 4.1 mmol/L (3.5-5.1); Sodium 138 mmol/L (136-145); Total Protein 7.1 g/dL (6.6-8.7)
--- NOTE | 2020-05-12 12:20 | P.PN_ITS ---
Subjective Subjective: Interval history: He thinks maybe the levodopa carbidopa has helped his tremor a little bit and that he is more able to stand up today. I could not get him to standing yesterday in the emergency department at all. He also seems a little more alert today. Vitals/I&O/Wt Last Vital Signs Temp 98.7 F 05/12/20 11:34 Pulse 92 05/12/20 11:34 Resp 17 05/12/20 11:34 BP 172/94 05/12/20 11:34 Pulse Ox 96 05/12/20 11:34 05/11/20 05/12/20 05/12/20 22:59 06:59 14:59 Intake Total 200 / 200 828.333 / 1028.333 140 / 140 Output Total 100 / 200 100 / 300 Balance 100 / 0 728.333 / 728.333 140 / 140 Weight last 48 hrs Weight 190 lb Physical Exam Narrative: EXAM NARRATIVE: He was alert and able to converse. He could not remember my name but he could tell me that his best friend sees me for tremor. His speech is slightly dysarthric. He complains of visual dysfunction. Cranial nerves: Eye movements are full without nystagmus. Facial movements symmetric. He has facial myoclonus. Visual duron are full. Repetitive linguals and guttural's are slow and irregular. Motor he still has marked dystonic posturing of the right arm and he neglects the right arm. I attempted to take him for a walk with a walker and he held onto the walker with the left hand and walked away with it, forgetting to hold it with the right hand and could not put his arm down to hold onto the walker. He has a strong destination coordinator on the left that he is apractic and cannot imitate simple movements with the left arm. Similarly, he cannot perform complex motor tasks in the legs but he is able to oppose to some degree. Deep tendon reflexes absent throughout. Toes upgoing. Gait: With to advise holding onto him I attempted to walk him initially by himself and then with a walker. He left the walker behind although he was still gripping it with the left hand. His midline stability is very poor. His gait is wide-based. He has truncal and extremity myoclonus initiated by movement or by startle. Cardiac S1 and S2 normal without murmur or gallop. 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 I reviewed with him again the story of his left orbital fracture and placement of multiple metallic pieces to hold his orbit together. He was told never to have an MRI scan. The surgery was performed when he was 24 and magnetic materials would have been used. He is not a candidate for MRI scan. I wonder if the material implanted in the left orbit was responsible for transmission of a slow virus although it was 50 years ago. His EEG shows diffuse slowing, more in the left hemisphere than the right. No periodic complexes. This was a nonspecific record and consistent with left hemisphere dysfunction more than right. 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 [facility] clinical criteria for Creutzfeldt Dawit are met as follows: Progressive dementia, and ?At least two out of the following four clinical features: -Myoclonus -Visual or cerebellar disturbance -Pyramidal or extrapyramidal dysfunction -Akinetic mutism Differential diagnosis since his CT scan of the head is negative would include cortical basal degeneration of rapidly progressive type, Lewy body disease, paraneoplastic syndrome or autoimmune encephalitis. It would be reasonable to submit anti-hu antibody, consider CT scan of the chest and anti-NMDA receptor antibody. I do not believe that this gentleman would be a candidate to return home. I took him for a walk this morning and he is extremely unstable even with 2 people and truncal myoclonus threatens to throw him to the floor. Continue trial of levodopa carbidopa which he thinks has helped somewhat. Incr ease to 2 tablets 3 times daily. Status: Acute (2) Encephalopathy acute: Status: Acute (3) Dystonia: Status: Acute (4) Myoclonus: Unfortunately there is not any test outside of CSF exam or better, brain biopsy, for diagnosis of slow virus disease. Our laboratory does not manage the spinal fluid. I think this gentleman needs clinical criteria and that there is no reason to pursue further except to rule out other causes with potential treatment and to treat him symptomatically. Status: Acute Attestations Medical Necessity Statement*: Rapidly progressive gait disorder with dementia requiring medication treatment trial and aggressive work-up Coding Level of Care Code Acute Time Clerk for [facility] Fwd Diagnoses Creutzfeldt Mookie disease A81.00 Encephalopathy acute G93.40 Dystonia G24.9 Myoclonus G25.3
--- NOTE | 2020-05-12 12:36 | PM.MISC ---
Miscellaneous Note Purpose of Documentation: EEG Note: ORDERING PHYSICIAN: Phillip Ca MD. REASON FOR STUDY: Rapidly progressive dementia. STUDY: This was a 21 channel digital electroencephalogram performed using the 10-20 international system of electrode placement. This study was [non-sleep deprived] and the patient was awake, [and drowsy]. Photic stimulation and hyperventilation were included. FINDINGS: The record was diffusely slow with posterior theta at 6 to 7 Hz. There was intermittent diffuse slowing in the theta range at 2 to 3 Hz, more in the left frontal region than the right. The background was poorly organized. No periodic complexes were seen. Myoclonus was seen by the dialysis equipment technician throughout the tracing and there was no cortical component. There was no significant change during photic stimulation or hyperventilation. IMPRESSION: Abnormal EEG because of diffuse slowing consistent with diffuse brain dysfunction or worse on the left. Recommend repeat EEG in 2 to 4 weeks. Duration of EE.5
--- NOTE | 2020-05-12 15:10 | XRR_ITS ---
PROCEDURE INFORMATION: Exam: XR Chest Exam date and time: 05/12/2020 3:16 PM Age: 74 years old Clinical indication: Condition or disease; Other: Encephalopathy TECHNIQUE: Imaging protocol: XR of the chest Views: 1 view. COMPARISON: No relevant prior studies available. FINDINGS: Lungs: Unremarkable. No consolidation. Pleural spaces: Unremarkable. No pleural effusion. No pneumothorax. Heart/Mediastinum: Unremarkable. No cardiomegaly. Bones/joints: Unremarkable. XR/XR chest 1V portable [id number] IMPRESSION: No acute findings.
[2020-05-12 16:00] VITALS: BP 172/94; PULSE 92; RESP 17; TEMP 37.1; O2SAT 96
[2020-05-12 19:47] VITALS: BP 171/85; PULSE 107; RESP 24; TEMP 36.7; O2SAT 96
--- NOTE | 2020-05-12 21:27 | PM.PN ---
Subjective Subjective: Interval history: Code Shreya was called this afternoon as patient coming confused, agitated. Saying something about [place]. Also about somebody having keys to the doors of hospital rooms. He does appear to remember speaking with me yesterday. Feels today his arm was not as bad. But says also it does not mean that it is better . He sustained a skin tear trying to rapidly stand up from his wheelchair and attempt to walk out and walk around the hallway, trying to evade hospital staff. Vitals/I&O/Wt Last Vital Signs Temp 98.0 F 05/12/20 19:47 Pulse 107 H 05/12/20 19:47 Resp 24 H 05/12/20 19:47 BP 171/85 05/12/20 19:47 Pulse Ox 96 05/12/20 19:47 05/12/20 05/12/20 05/12/20 06:59 14:59 22:59 Intake Total 828.333 / 6175.040 5569.667 / 1196.667 Output Total 100 / 300 Balance 728.333 / 279.811 5740.667 / 1196.667 Weight last 48 hrs Weight 86.183 kg Physical Exam Const: COMMON NORMALS: no acute distress and alert; negative for patient oriented x3 ORIENTATION/CONSCIOUSNESS: Yes awake and Yes confused HENMT: COMMON NORMALS: oropharynx normal Neck/C-Spine: COMMON NORMALS: no meningeal signs and no JVD Resp: COMMON NORMALS: normal respiratory effort and clear to auscultation bilaterally AUSCULTATION: clear to auscultation bilaterally Cardio: COMMON NORMALS: no JVD, regular rhythm, S1 normal heart sound present, S2 normal heart sound present and No murmurs present (Cardio) RHYTHM: regular rhythm HEART SOUNDS: S1 normal heart sound present and S2 normal heart sound present GI: COMMON NORMALS: Normal to inspection, nondistended, normoactive bowel sounds present, Soft to palpation and non-tender PALPATION: Yes Soft to palpation Extremity: COMMON NORMALS: no joint enlargement and no pedal edema Neuro: COMMON NORMALS: moves all extremities; negative for patient oriented x3 SENSORIUM/ORIENTATION: Yes alert MENINGEAL SIGNS: Yes no meningeal signs CRANIAL NERVES: Yes CN normal except as noted and Yes other SPEECH: speech normal GAIT: Yes Unable to assess gait SENSORY EXAM: Yes extremities (Paresthesia/sensory loss distal extremities, although cannot identify SL) and Abnormal double simultaneous stimulation for sensation Double similtaneous stimulation abnormal: right-sided extinction MOTOR EXAM: Abnormal muscle tone present spastic: right upper extremity (All extremities mild, but worst RUE) OTHER: Visual duron full to confrontation. No nystagmus. Skin: COMMON NORMALS: no rashes or lesions noted GENERAL SKIN EXAM: no rashes or lesions noted OTHER: Skin tear over palmar wrist, ulnar aspect, .5 centimeter, shallow. Allow the wound to be attended and dressed. Tattoos. Data : 05/12/20 10:57 05/12/20 10:57 A&P Assessment and plan (1) Encephalopathy acute: Restless, agitated today, requiring Haldol IM due to throwing objects at his neighbor, walking out into the [place]. Confused. Initially uncooperative, however, subsequently more calm, more redirectable and cooperative. I am not sure whether this is part of his progressive condition, as opposed to delirium due to change of location and unfamiliar surroundings. Requested additional investigation with chest x-ray which appears to be unremarkable. Requested UA. Continue work-up regarding neurodegenerative condition. Appreciate neurology input. Continue supportive care. One-to-one sitter. In the current condition unable to return home. Status: Acute (2) Myoclonus: Appreciate results of EEG. 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 He appears to fit criteria otherwise as per neurologic assessment. Requested additional assessment antibodies. Chest CT. As he is becoming agitated, confused, will need to confirm with neurology whether Sinemet may have contributed and whether increasing dose should be safe. Adverse effect of confusion, hallucinations risk is small, but possible. Appears to have progressive and disabling symptoms with myoclonus, dystonia, gait disturbance, sensory abnormality, also memory loss, declining visual acuity. Appreciate neurological assessment. MRI was considered discussed with patient, unfortunately with history of facial reconstruction surgery with metal plate MRI is not a possibility. Normal B12, folic acid. PT and OT is requested. Status: Acute (3) Dystonia: Status: Acute (4) Carotid stenosis: Incidentally noted carotid stenosis, right side 92% or 22%, will need to confirm with radiology, left side 65%. Status: Acute (5) Spinal stenosis: Cervical spinal stenosis noted with moderate to severe multilevel central and foraminal stenosis due to combination of disc disease, osteophytosis and facet arthritis. Mild anterior wedging T1 and T3. Maintain outpatient appointment with Ortho spine surgery depending on long-term condition and goals of care. Status: Acute (6) HTN (hypertension): Monitor blood pressures. Continue amlodipine, atenolol, lisinopril. Status: Acute Attestations Medical Necessity Statement*: Continue admission for assessment management of progressive neurodegenerative condition, with loss of functional capacity, mobility, memory and vision. Coding Level of Care Code Acute Manager Crisis for [facility] Fwd Diagnoses Encephalopathy acute G93.40 Myoclonus G25.3 Dystonia G24.9 Carotid stenosis I65.29 Spinal stenosis M48.00 HTN (hypertension) I10
--- NOTE | 2020-05-12 21:51 | PC.NURSE ---
One on one sitter in room with patient at this time. Patient laying in bed. Patient just went back to be at 2130 before that he had been sitting up in the chair. Patient is alert to self. Asked patient if he would be willing to into a wheel chair so we could take him to get a CT scan of his chest. Patient states , No I don't need a CT scan I need an MRI. Explained to patient that we are unable to do and MRI because of the metal that he has in his head. Patient states, No I am not going for a CT scan. Unable to take patient at this time radiology notified.
[2020-05-13] VITALS: BP 159/80; PULSE 89; RESP 18; TEMP 37.1; O2SAT 96
[2020-05-13 03:10] LABS: Amphetamines Screen Urine Negative (Negative); Barbiturates Screen Urine Negative (Negative); Benzodiazepines Screen Urine Negative (Negative); Cocaine Screen Urine Negative (Negative); Opiate Screen Urine Negative (Negative); PCP Screen Urine Negative (Negative); THC Screen Urine Negative (Negative)
[2020-05-13 03:22] LABS: Add Urine Microscopic? YES; Bilirubin Urine Neg (Negative); Blood Urine 3+ (Negative); Glucose Urine UA Trace (Normal); Ketones Urine 1+ (Negative); Leukocyte Esterase Urine Negative (Negative); Nitrate Urine Negative (Negative); Protein Urine Trace (Negative); Urine Appearance Clear (CLEAR); Urine Color Yellow (Yellow); Urobilinogen Urine Norm (Negative); pH Urine 5 (5-7)
[2020-05-13 03:36] LABS: Bacteria Urine TRACE /hpf; Hyaline Casts Urine 0-4 /lpf; Mucus Urine 1+ /hpf; Squamous Epithelial Cell Urine 0-4 /hpf (0-5); WBC Urine 0-4 /hpf (0-5)
[2020-05-13 03:37] LABS: Add Urine Culture? No
[2020-05-13 05:07] VITALS: BP 174/91; PULSE 91; RESP 20; TEMP 36.6; O2SAT 96
[2020-05-13] MEDS: atenolol 50 mg Tablet PO (05:19)
[2020-05-13] MEDS: amlodipine 10 mg Tablet PO (05:19)
[2020-05-13 05:31] LABS: Basophils % 0.3 %; Eosinophils % 0.7 %; Hematocrit 42.9 % (42.0-52.0); Lymphocytes % 16.2 %; Mean Corpuscular Hemoglobin 31.6 pg (28.0-34.0); Mean Corpuscular Volume 90.5 fL (80-94); Mean Platelet Volume 10.2 fL (7.4-10.4); Monocytes # 0.5 10^3/uL (0.2-0.9); Neutrophils % 73.5 %; Nucleated Red Blood Cells % 0 %; Platelet Count 144 10^3/cmm (130-400); Red Blood Count 4.74 10^6/uL (4.1-5.3); Red Cell Distribution Width 13.2 % (12.1-15.1)
[2020-05-13 05:47] LABS: Alanine Aminotransferase 10 U/L (0-41); Albumin Level 4.3 g/dL (3.5-5.2); Alkaline Phosphatase 78 IU/L (40-130); Anion Gap 15.8 (5-19); Aspartate Amino Transferase 42 U/L (0-40); Blood Urea Nitrogen 22 mg/dL (8-23); Calcium 8.9 mg/dL (8.5-10.5); Carbon Dioxide 24 mmol/L (22-29); Chloride 108 mmol/L (98-107); Globulin 2.6 g/dL (1.3-4.6); Glucose 126 mg/dL (65-115); Osmolality Calculated 303 mOsm/kg (285-295); Potassium 3.8 mmol/L (3.5-5.1); Sodium 144 mmol/L (136-145); Total Bilirubin 0.9 mg/dL (0.15-1.2); Total Protein 6.9 g/dL (6.6-8.7)
[2020-05-13 05:49] LABS: Creatinine Clr Calc Pharmacy 47.1089
[2020-05-13 07:33] VITALS: BP 161/79; PULSE 85; RESP 18; TEMP 36.6; O2SAT 95
--- NOTE | 2020-05-13 08:00 | CT_ITS ---
WS: [id number] CT CHEST WITHOUT INTRAVENOUS CONTRAST HISTORY: Possible malignancy. Paraneoplastic syndrome. TECHNIQUE: Contiguous 5 mm axial imaging performed on the thorax. Coronal and sagittal reformats are submitted. All CT scans at [facility] use at least one of these dose optimization techniq ues: automated exposure control; mA and/or kV adjustment per patient size (includes targeted exams wh ere dose is matched to clinical indication); or iterative reconstruction. CONTRAST: None DLP: 623.4 mGy.cm COMPARISON: No similar studies. Lungs and central airway: Large solid mass centered at the LEFT hilum extends predominantly into the LEFT lower lobe but also extends into the LEFT upper lobe. Mass extends over a length of 3.3 cm x 3.4 x 4.6 cm. Mass extends into the proximal LEFT lower lobe bronchus with encasement of the bronchovasc ular structures. Mass extends medially to involve the descending aorta over a length of 2.1 cm. There is complete obliteration of the fat plane and possible invasion into the aorta. There are a few smal l adjacent satellite lesions and postobstructive atelectasis. No additional suspicious pulmonary mass . Pleura: Normal. No pleural effusion. Heart and pericardium: Moderately enlarged heart. Extensive coronary artery calcifications. Mediastinum and john: No enlarged lymph nodes noted on this unenhanced study. Vessels: Moderate atherosclerotic plaque within the aorta. Aorta is tortuous with an undulating cours e. Pulmonary artery size is normal. Chest wall and lower neck: No soft tissue masses. Upper abdomen: Unenhanced imaging demonstrates no significant abnormality within the liver. There is a small cyst in the RIGHT lobe. Gallbladder may have been surgical removed or contracted. No adrenal mass. Stable cyst from the posterior upper pole RIGHT kidney measures 3.3 x 3.4 cm. There is an addit ional hypoechoic area in the upper pole the LEFT kidney within maximum diameter of 0.8 cm. No adrenal mass. There is marked distention of the stomach with food and air. Osseous structures: Osteopenia. Mild anterior wedging of T1 and T3. CT/CT chest wo con [id number] IMPRESSION: 1. Large solid mass centered at the LEFT hilum extending into the upper and lo wer lobes. Mass measures 3.3 x 3.4 x 4.6 cm and extends into the LEFT lower lob e bronchus. Small satellite lesions and mild postobstructive bronchiectasis. 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 2. LEFT hilar mass obliterates the fat plane with the descending aorta. Possib le invasion into the thoracic aorta. 3. No adenopathy. 4. No adrenal mass. 5. Moderate coronary artery atherosclerosis.
[2020-05-13] MEDS: carbidopa-levodopa 25-100mg Tablet 1 EACH PO ×2 (08:03→12:24)
[2020-05-13] MEDS: D5-NS 0.45% + KCL 20 mEq 20 MEQ/1,000 ML BAG 100 MEQ IV (08:06)
--- NOTE | 2020-05-13 10:46 | PC.CHAP ---
Pastoral Care Encounter/Spiritual Assessment Type of Contact [] Declined water supervisor visit [] Patient/Family/Request visit [] Outpatient visit [] Follow-up visit [] Physician referral [] Code/Alert [X] Routine visit [] Staff referral [] Actively dying [] Patient sleeping [] Family support [] [] Out of room [] Palliative care [] [] Receiving care in room [] Pre-surgical visit [] Trauma [] Long length of stay [] ICU visit [] Other: Relational/Emotional Strength [X] Patient feels connected with others/family/visitors/staff [] Distress [] Loneliness/isolation [] Abandonment Spirituality of Patient [] Person of Gena [] Attends Christianity of their Gena [] Believes in Prayer [] Reads Bible or Pentecostal materials [X] There are Spiritual issues to be addressed [employer] Interventions [] Prayer [X] Active listening [X] Non-anxious presence [X] Spiritual/emotional support [] Crisis/trauma care [] Spiritual counseling [] Bereavement support [] Provided bereavement packet [] Provided Bible/devotional materials [] Provided toy/stuffed animal, coloring book to patient or family member [] Provided Communion [] Anointing/[place] [] Salvation [X] Completed spiritual assessment [] Other: Impact on Illness or Injury [] Angry [] Fearful [X] Anxious [] Often cries [] Exhaustion [] Unable to work [] Unable to attend yazidi [] Unable to walk/stand [] Unable to read [] Unable to drive [] Unable to eat/drink [] Unable to sleep [] Unable to be with family [] Patient intubated [] Other: Summary Pt talkive but seemed a little confused regarding some of the questions. He had a sitter with him to make sure he did not get out of bed. Uncertain of his plans of discharged and gave conflicting statements regarding his plans once he is released. He indicated he currently lives alone but does have some friends who will check on him from time to time. Indicated he did not need anything from [employer] but thanked for the visit. Time spent with patient
[2020-05-13 11:22] VITALS: BP 173/92; PULSE 86; RESP 17; TEMP 36.7; O2SAT 96
[2020-05-13 16:00] VITALS: BP 178/83; PULSE 80; RESP 17; TEMP 36.7; O2SAT 97
[2020-05-13 20:08] VITALS: BP 177/82; PULSE 97; RESP 18; TEMP 36.6; O2SAT 95
[2020-05-13] MEDS: OLANZapine 5 mg TABLET PO (20:24)
--- NOTE | 2020-05-13 20:48 | P.PN_ITS ---
Subjective Subjective: Interval history: Today he is doing better in terms of confusion. He knows he is in the hospital, knows it is 2020. Is not sure that his symptoms otherwise have improved significantly. Vitals/I&O/Wt Last Vital Signs Temp 97.8 F 05/13/20 20:08 Pulse 97 05/13/20 20:08 Resp 18 05/13/20 20:08 BP 177/82 05/13/20 20:08 Pulse Ox 95 05/13/20 20:08 05/13/20 05/13/20 05/13/20 06:59 14:59 22:59 Intake Total 1480 / 2676.667 120 / 120 140 / 260 Output Total 345 / 665 175 / 175 50 / 225 Balance 1135 / 2011.667 -55 / -55 90 / 35 Physical Exam Const: COMMON NORMALS: no acute distress and alert; negative for patient oriented x3 GENERAL APPEARANCE: cooperative ORIENTATION/CONSCIOUSNESS: Yes awake and Yes confused HENMT: COMMON NORMALS: oropharynx normal Neck/C-Spine: COMMON NORMALS: no meningeal signs and no JVD Resp: COMMON NORMALS: normal respiratory effort and clear to auscultation bilaterally AUSCULTATION: clear to auscultation bilaterally Cardio: COMMON NORMALS: no JVD, regular rhythm, S1 normal heart sound present, S2 normal heart sound present and No murmurs present (Cardio) RHYTHM: regular rhythm HEART SOUNDS: S1 normal heart sound present and S2 normal heart sound present GI: COMMON NORMALS: Normal to inspection, nondistended, normoactive bowel sounds present, Soft to palpation and non-tender PALPATION: Yes Soft to palpation Extremity: COMMON NORMALS: no joint enlargement and no pedal edema Neuro: COMMON NORMALS: moves all extremities; negative for patient oriented x3 SENSORIUM/ORIENTATION: Yes alert MENINGEAL SIGNS: Yes no meningeal signs CRANIAL NERVES: Yes CN normal except as noted and Yes other SPEECH: speech normal GAIT: Yes Unable to assess gait SENSORY EXAM: Yes extremities (Paresthesia/sensory loss distal extremities, although cannot identify SL) and Abnormal double simultaneous stimulation for sensation Double similtaneous stimulation abnormal: right-sided extinction MOTOR EXAM: Abnormal muscle tone present spastic: right upper extremity (All extremities mild, but worst RUE) Skin: COMMON NORMALS: no rashes or lesions noted GENERAL SKIN EXAM: no rashes or lesions noted OTHER: No active bleeding from skin tear over palmar wrist, ulnar aspect, .5 centimeter, shallow. Tattoos. Data : 05/13/20 05:06 05/13/20 05:06 A&P Assessment and plan (1) Lung mass: New lung mass identified on CT chest, left side, with invasion of multiple lobes, intrabronchial invasion, some postobstructive bronchiectasis. 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 Left hilar mass with possible invasion to thoracic aorta. Requesting pulmonology consultation. Tentative plan for possible tissue sample tomorrow. Keep n.p.o. after midnight. Status: Acute (2) Encephalopathy acute: Acute encephalopathy improved. Requested urinalysis not suggestive of UTI. Chest x-ray unremarkable. Urine drug screen negative. Possibility of underlying etiology being responsible, however, on discussion with neurology we will also discontinue Sinemet at this time given it does not appear to have shown very significant improvement in symptoms, and may be contributing to mental status changes. Appreciate neurology recommendations. We are also starting Zyprexa 2.5 mg the morning, 5 in the evening, repeat 5 in the evening if needed. Continue supportive care, one-to-one sitter for now, if remains stable may discontinue. In the current condition unable to return home. Discharge planning working on placement. Status: Acute (3) Myoclonus: Noted new mass in the left lung, likely malignancy. Discussed with neurology, appears this is possibly paraneoplastic symptom. Anti-Hu and anti- NMDA have been requested, although doubt that he will be back soon. Appreciate results of EEG. It unfortunately did not diminish the possible neurodegenerative condition, possible CJD considered. He appears to fit criteria otherwise as per neurologic assessment. Appears to have progressive and disabling symptoms with myoclonus, dystonia, gait disturbance, sensory abnormality, also memory loss, declining visual acuity. Appreciate neurological assessment. MRI was considered discussed with patient, unfortunately with history of facial reconstruction surgery with metal plate MRI is not a possibility. Normal B12, folic acid. PT and OT is requested. Status: Acute (4) Dystonia: Status: Acute (5) Carotid stenosis: Discussed with radiology, right side carotid stenosis is 22%. Left side 65%. Status: Acute (6) Spinal stenosis: Cervical spinal stenosis noted with moderate to severe multilevel central and foraminal stenosis due to combination of disc disease, osteophytosis and facet arthritis. Mild anterior wedging T1 and T3. Consider outpatient appointment with Ortho spine surgery depending on long-term condition and goals of care. Status: Acute (7) HTN (hypertension): Increase atenolol dose to 100 mg. DC IVF. Monitor blood pressures. Continue amlodipine, atenolol, lisinopril. Status: Acute (8) HAIDER (acute kidney injury): HAIDER with mild improvement. Creatinine down to 1.5. DC IV fluid. Continue to monitor. Status: Acute Attestations Medical Necessity Statement*: Continue admission for diagnosis of new lung mass with possible paraneoplastic symptoms resulting in severe dystonia, myoclonus, with significant functional decline, inability to function independently, to allow for initiation of possible treatment. Optimization of poorly controlled hypertension. Disposition planning. Coding Level of Care Code Acute Dental Hygiene Instructor for [facility] Fwd Diagnoses Lung mass R91.8 Encephalopathy acute G93.40 Myoclonus G25.3 Dystonia G24.9 Carotid stenosis I65.29 Spinal stenosis M48.00 HTN (hypertension) I10 HAIDER (acute kidney injury) N17.9
[2020-05-14] VITALS (13 sets, daily range): BP systolic 91–184; BP diastolic 59–89; PULSE 62–92; RESP 15–20; TEMP 36.6–37.7; O2SAT 93–99
--- NOTE | 2020-05-14 02:56 | PC.NURSE ---
Report to Enrrique EREVES
[2020-05-14] MEDS: amlodipine 10 mg Tablet PO (05:20)
[2020-05-14] MEDS: atenolol 50 mg Tablet 100 MG PO (05:20)
[2020-05-14 06:28] LABS: Basophils % 0.5 %; Eosinophils # 0.2 10^3/uL (0.0-0.8); Eosinophils % 3.1 %; Hematocrit 44.5 % (42.0-52.0); Hemoglobin 15.5 g/dL (11.7-16.6); Lymphocytes # 1.6 10^3/uL (0.8-4.8); Lymphocytes % 27.8 %; Mean Corpuscular HGB Conc 34.8 g/dL (30.0-36.0); Mean Corpuscular Volume 91.9 fL (80-94); Mean Platelet Volume 10.8 fL (7.4-10.4); Monocytes # 0.5 10^3/uL (0.2-0.9); Monocytes % 8.4 %; Neutrophils # 3.47 10^3/uL (1.8-7.7); Neutrophils % 59.9 %; Nucleated Red Blood Cells % 0 %; Platelet Count 153 10^3/cmm (130-400); Red Blood Count 4.84 10^6/uL (4.1-5.3); Red Cell Distribution Width 13.3 % (12.1-15.1); White Blood Count 5.8 10^3/uL (4.0-10.0)
[2020-05-14 06:52] LABS: Alanine Aminotransferase 16 U/L (0-41); Albumin Level 4.1 g/dL (3.5-5.2); Alkaline Phosphatase 78 IU/L (40-130); Anion Gap 15.5 (5-19); Aspartate Amino Transferase 38 U/L (0-40); Blood Urea Nitrogen 21 mg/dL (8-23); Carbon Dioxide 26 mmol/L (22-29); Chloride 105 mmol/L (98-107); Creatinine Clr Calc Pharmacy 47.1089; Globulin 2.8 g/dL (1.3-4.6); Glucose 91 mg/dL (65-115); Osmolality Calculated 299 mOsm/kg (285-295); Potassium 3.5 mmol/L (3.5-5.1); Sodium 143 mmol/L (136-145); Total Bilirubin 1.1 mg/dL (0.15-1.2); Total Protein 6.9 g/dL (6.6-8.7)
--- NOTE | 2020-05-14 08:54 | PM.CONSULT ---
Providers/Reason For Consult Consulting Physican/Specialty*: Mando Ingram MD /Pulmonolgy Reason for Consult*: Left hilar mass suspicious for malignancy Attending Physician: Andrew Sesay History of Present Illness History of Present Illness Jaydon Yousif is a 74 year old male with PMH B/L renal cyst, hypertension, hyperlipidemia, low back pain, sciatica, chronic smoker presented to ED on 05/11/2020 with vigorous myoclonic tremor, severe ataxia and amnesia worsening over the last 1 month. He reported unsteady gait for last several months but cannot walk anymore. He was previously assessed in ER on 04/30/20, and since then his symptoms have progressed. At the time he underwent CT cervical spine with finding of moderate to severe multilevel central and foraminal stenosis due to combination of disc disease, osteophytosis and facet arthritis. Mild anterior wedging of T1 and T3. Age indeterminate fractures. He was referred for outpatient MRI brain, also referred to spine surgery, however, was unable to attend his appointment, and states also is unable to have MRI done due to history of facial reconstruction surgery with metal plate with instructions he is not to have MRI in the future. CT of the head during prior admission and currently with mild atrophy with moderate chronic microvascular ischemic changes, prior lacunar in the. No interval change. Right maxillary sinus disease noted. During this admission CT angiogram head and neck with moderate calcified plaque at the carotid bifurcations, left ICA stenosis 65%, right ICA stenosis 92%. Bilateral cavernous sinus and supraclinoid atherosclerotic plaque. Stenosis 50-60% greatest on the left. Bovine arch. Neurology was consulted and Dr. Gotti requested a CT chest to rule out any masses causing paraneoplastic syndrome or autoimmune encephalitis leading to myoclonus. Subsequent CT chest 05/13/2020 showed left hilar mass. Given his significant smoking history suspicion is for lung malignancy and pulmonary consulted for possible biopsies. Patient seen at bedside today morning -Lying in bed still having myoclonic jerks -Patient alert, awake and oriented but answered few questions. -Denied no new complaints except for uncontrolled shaking and unsteady gait worsening for last 1 month -Admitted smoking 1 pack/day for several years -Labs and imaging reviewed -Patient n.p.o. overnight and plan is to do bronchoscopy for airway examination and endobronchial ultrasound guided fine-needle aspiration of left hilar mass for tissue diagnosis Review of Systems General: Reports: 10 or more systems reviewed and unremarkable except in HPI and below Meds/Allergies Home Medications and Allergies Home Medications Medication Instructions Recorded Confirmed Last Taken Type amlodipine 10 mg PO QAM 05/11/20 05/11/20 05/11/20 History atenolol 50 mg PO QAM 05/11/20 05/11/20 05/11/20 09:00 History 100 mg lisinopril 40 mg PO QAM 05/11/20 05/11/20 05/11/20 History Allergies Allergy/AdvReac Type Severity Reaction Status Date / Time No Known Allergies Allergy Verified 05/11/20 12:05 Current Medications Current Medications Generic Name Dose Route Start Last Admin Trade Name Freq PRN Reason Stop Dose Admin Amlodipine Besylate 10 mg 05/12/20 06:00 05/14/20 05:20 Amlodipine 10 Mg Tablet PO 10 mg QAM NAY Administration Atenolol 100 mg 05/14/20 06:00 05/14/20 05:20 Atenolol 50 Mg Tablet PO 100 mg QAM NAY Administration Heparin Sodium (Beef Lung) 5,000 unit 05/11/20 19:00 05/14/20 02:56 Heparin 5,000 Unit/Ml Inj 1 Ml SUBCUT Not Given Q8H NAY Olanzapine 5 mg 05/13/20 21:00 05/13/20 20:24 Olanzapine 5 Mg Tablet PO 5 mg BEDTIME NAY Administration PFSH Acute PFSH: Medical History Bilateral renal cysts HTN (hypertension) Hyperlipemia Low back pain Sciatica Surgical History H/O knee surgery H/O partial nephrectomy History of facial surgery Family History Father , [place] CAD (coronary artery disease) Social History Smoking and tobacco status: current every day smoker Alcohol intake: never Substance/Drug Use: former Date of last use: Long time ago. Marijuana. Household members: none Marital status: Current occupational status: retired Vitals/I&O/Wt Last Vital Signs Temp 98.1 F 05/14/20 07:35 Pulse 70 05/14/20 07:35 Resp 18 05/14/20 07:35 BP 146/78 05/14/20 07:35 Pulse Ox 93 05/14/20 07:35 05/13/20 05/14/20 05/14/20 22:59 06:59 14:59 Intake Total 140 / 260 Output Total 350 / 525 Balance -210 / -265 Physical Exam Narrative: EXAM NARRATIVE: General: alert, NAD HEENT: conj clear, EOMI, PERRL, mmm, Neck: supple, no meningismus Heme: no cervical LAP Pulmonary: CTAB, no wheezing, rhonchi, crackles Cardiovascular: rrr, nl s1s2, no mrg Abdomen: soft, nt, nd, no r/g, bs+ Extremities: pulses +, no edema, no c/c : no CVA tenderness Skin: intact, no rash MSK: no back or neck pain Neurologic: Facial myoclonus, marked dystonic posturing of right arm with myoclonus, absent deep tendon reflexes, toes upgoing, wide based gait Data Other Data: Other data: CT chest 05/13/2020: 1. Large solid mass centered at the LEFT hilum extending into the upper and lower lobes. Mass measures 3.3 x 3.4 x 4.6 cm and extends into the LEFT lower lobe bronchus. Small satellite lesions and mild postobstructive bronchiectasis. Pulmonary neoplasm is likely. 2. LEFT hilar mass obliterates the fat plane with the descending aorta. Possible invasion into the thoracic aorta. 3. No adenopathy. 4. No adrenal mass. 5. Moderate coronary artery atherosclerosis. CT head 05/11/2020: 1. Moderate calcified plaque at the carotid bifurcations. 2. LEFT ICA stenosis 65%. 3. RIGHT ICA stenosis 92%. 4. Bilateral cavernous sinus and supraclinoid atherosclerotic plaque. Stenosis 50-60%, greatest on the LEFT. 5. Bovine arch. 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 -Plan for PFTs and PET scan as outpatient -Continue DuoNeb nebulizations every 6 as needed for shortness of breath/wheezing and discharged with Spiriva 2 puffs daily and albuterol as needed to pulmonary clinic -If patient gets discharged, please follow-up in pulmonary clinic for pathology results. -Neurology is on the case Recommendations conveyed to hospitalist taking care of the patient. 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 Time Spent in Patient Care: Greater than 35 minutes (>than 50% of time spent in counselling and/or direct pt care on unit). Critical Care Time: Critical Care Time (min): 45 Coding Level of Care Code Established Pt Acute Product Support Sales Representative for Chg Fwd Patient Type Established History Comprehensive Medical Decision Making Moderate Complexity Diagnoses Lung mass R91.8 HTN (hypertension) I10 Hypertension type: unspecified Myoclonus G25.3 Dystonia G24.9 Smoker F17.200 Time Spent (min) 45
--- NOTE | 2020-05-14 09:23 | PC.CHAP ---
Pastoral Care Encounter/Spiritual Assessment Type of Contact [] Declined hammer smith visit [] Patient/Family/Request visit [] Outpatient visit [] Follow-up visit [] Physician referral [] Code/Alert [x] Routine visit [] Staff referral [] Actively dying [] Patient sleeping [] Family support [] [] Out of room [] Palliative care [] [] Receiving care in room [] Pre-surgical visit [] Trauma [] Long length of stay [] ICU visit [] Other: Relational/Emotional Strength [x] Patient feels connected with others/family/visitors/staff [] Distress [] Loneliness/isolation [] Abandonment Spirituality of Patient [x] Person of Gena [x] Attends Shinto of their Gena [x] Believes in Prayer [] Reads Bible or Congregation materials [] There are Spiritual issues to be addressed Regional Hr Manager Interventions x[] Prayer [x] Active listening [] Non-anxious presence [] Spiritual/emotional support [] Crisis/trauma care [] Spiritual counseling [] Bereavement support [] Provided bereavement packet [] Provided Bible/devotional materials [] Provided toy/stuffed animal, coloring book to patient or family member [] Provided Communion [] Anointing/[place] [] Salvation [x] Completed spiritual assessment [] Other: Impact on Illness or Injury [] Angry [] Fearful [] Anxious [] Often cries [] Exhaustion [] Unable to work [] Unable to attend spiritism [] Unable to walk/stand [] Unable to read [] Unable to drive [] Unable to eat/drink [] Unable to sleep [] Unable to be with family [] Patient intubated [] Other: Summary Time spent with patient 1o min
--- NOTE | 2020-05-14 09:46 | P.PN_ITS ---
Subjective Subjective: Interval history: Today he states he is doing all right, although feels perhaps not as well as yesterday. Denies new symptoms. Denies chest pain or trouble breathing. Vitals/I&O/Wt Last Vital Signs Temp 98.1 F 05/14/20 07:35 Pulse 70 05/14/20 07:35 Resp 18 05/14/20 07:35 BP 146/78 05/14/20 07:35 Pulse Ox 93 05/14/20 07:35 05/13/20 05/14/20 05/14/20 22:59 06:59 14:59 Intake Total 140 / 260 240 / 500 480 / 480 Output Total 350 / 525 Balance -210 / -265 240 / -25 480 / 480 Physical Exam Const: COMMON NORMALS: no acute distress and alert; negative for patient oriented x3 GENERAL APPEARANCE: cooperative ORIENTATION/CONSCIOUSNESS: Yes awake and Yes confused HENMT: COMMON NORMALS: oropharynx normal Neck/C-Spine: COMMON NORMALS: no meningeal signs and no JVD Resp: COMMON NORMALS: normal respiratory effort and clear to auscultation bilaterally AUSCULTATION: clear to auscultation bilaterally Cardio: COMMON NORMALS: no JVD, regular rhythm, S1 normal heart sound present, S2 normal heart sound present and No murmurs present (Cardio) RHYTHM: regular rhythm HEART SOUNDS: S1 normal heart sound present and S2 normal heart sound present GI: COMMON NORMALS: Normal to inspection, nondistended, normoactive bowel sounds present, Soft to palpation and non-tender PALPATION: Yes Soft to palp ation Extremity: COMMON NORMALS: no joint enlargement and no pedal edema Neuro: COMMON NORMALS: moves all extremities; negative for patient oriented x3 SENSORIUM/ORIENTATION: Yes alert MENINGEAL SIGNS: Yes no meningeal signs CRANIAL NERVES: Yes CN normal except as noted and Yes other SPEECH: speech normal GAIT: Yes Unable to assess gait SENSORY EXAM: Yes extremities (Paresthesia/sensory loss distal extremities, although cannot identify SL) and Abnormal double simultaneous stimulation for sensation Double similtaneous stimulation abnormal: right-sided extinction MOTOR EXAM: Abnormal muscle tone present spastic: right upper extremity (All extremities mild, but worst RUE) OTHER: Visual duron full to confrontation. No nystagmus. Skin: COMMON NORMALS: no rashes or lesions noted GENERAL SKIN EXAM: no rashes or lesions noted OTHER: No active bleeding from skin tear over palmar wrist, ulnar aspect. Healing. Tattoos. Data : 05/14/20 05:15 05/14/20 05:15 A&P Assessment and plan (1) Lung mass: Discussed with patient. He is agreeable to proceed with additional diagnostic investigations with pulmonology, bronchoscopy as needed. He also names, in case he was unable to make his own decisions, surrogate decision makers both his son Jaydon Chow, , as well as his very close friend Reid Espinoza [phone]. New lung mass identified on CT chest, left side, with invasion of multiple lobes, intrabronchial invasion, some postobstructive bronchiectasis. 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 Left hilar mass with possible invasion to thoracic aorta. Requesting pulmonology consultation. Tentative plan for possible tissue sample tomorrow. Keep n.p.o. Status: Acute (2) Encephalopathy acute: This appears to have mostly improved. Sinemet discontinued. Zyprexa 2.5 mg the morning, 5 in the evening, repeat 5 in the evening if needed. Acute encephalopathy improved. We will see if one-to-one sitter can be discontinued today. In the current condition unable to return home. Discharge planning working on placement. Status: Acute (3) Myoclonus: Suspected paraneoplastic process. Noted new mass in the left lung, likely malignancy. Discussed with neurology, appears this is possibly paraneoplastic symptom. Anti-Hu and anti-NMDA have been requested, although doubt that he will be back soon. Appreciate results of EEG. It unfortunately did not diminish the possible neurodegenerative condition, possible CJD considered. He appears to fit criteria otherwise as per neurologic assessment. Appears to have progressive and disabling symptoms with myoclonus, dystonia, gait disturbance, sensory abnormality, also memory loss, declining visual acuity. Appreciate neurological assessment. MRI was considered discussed with patient, unfortunately with history of facial reconstruction surgery with metal plate MRI is not a possibility. Normal B12, folic acid. PT and OT is requested. Status: Acute (4) Dystonia: Status: Acute (5) Carotid stenosis: Discussed with radiology, right side carotid stenosis is 22%. Left side 65%. Status: Acute (6) Spinal stenosis: Cervical spinal stenosis noted with moderate to severe multilevel central and foraminal stenosis due to combination of disc disease, osteophytosis and facet arthritis. Mild anterior wedging T1 and T3. Consider outpatient appointment with Ortho spine surgery depending on long-term condition and goals of care. Status: Acute (7) HTN (hypertension): Increased atenolol dose to 100 mg. Monitor. Monitor blood pressures. Continue amlodipine, atenolol, lisinopril. Status: Acute (8) HAIDER (acute kidney injury): HAIDER with mild improvement. Creatinine down to 1.5. DC IV fluid. Continue to monitor. Status: Acute Attestations Medical Necessity Statement*: Continue admission for assessment management of newly found lung mass, with suspected paraneoplastic process resulting in severe disabling dystonia, myoclonus, with loss of functional capacity. Disposition arrangements. Coding Level of Care Code Acute Nurse Transition for [facility] Diagnoses Lung mass R91.8 Encephalopathy acute G93.40 Myoclonus G25.3 Dystonia G24.9 Carotid stenosis I65.29 Spinal stenosis M48.00 HTN (hypertension) I10 HAIDER (acute kidney injury) N17.9
--- NOTE | 2020-05-14 09:57 | PC.NURSE ---
Received verbal orders to discontinue one-on-one sitter and attempt to set bed alarm.
[2020-05-14] MEDS: OLANZapine 5 mg TABLET 2.5 MG PO (10:14)
[2020-05-14] MEDS: sodium chloride 0.9% 1,000 ML 30 ML IV (11:40)
--- NOTE | 2020-05-14 11:41 | P.ANESASSM_ITS ---
Pre-Anesthetic Assessment Pre-Anesthetic Assessment: Height/Weight: Height 1.78 m Weight 86.183 kg Temp Pulse Resp BP Pulse Ox 98.1 F 70 18 146/78 93 05/14/20 07:35 05/14/20 07:35 05/14/20 07:35 05/14/20 07:35 05/14/20 07:35 Preop Diagnosis: LEFT LUNG MALIGNANCY Proposed Procedure: Operation Date: 05/14/20 12:10 Proposed Procedures p Ebus(Not Applicable) - Biplab MD Lamin Familial anesthetic complications: None Was Beta Sharmaine taken within 24 hours: Yes Last intake: Intake Last Liquid Date 05/14/20 Last Liquid Time 07:00 Last Solid Date 05/13/20 Last Solid Time 18:00 Social: Social History: Tobacco and No alcohol Exam: Pre-Anes Outpt Exam: alert, oriented x 3, clear to auscultation bilaterally and regular rate & rhythm Airway: Cervical ROM: WNL MP: 3 Dentition: Full Additional comments: able to extend neck backwards, no tension or myoclonus of jaw Pulmonary: Pulmonary: COPD Comments: Lung nodules CV/HEM: CV/HEM: HTN : Comments: HAIDER Musc/skel: Comments: dystonia, spastic myoclonus, encephalopathy, ? etiology paraneoplastic Neuropsych: Comments: encephalopathy Anesthetic Plan: ASA status: 4 Anesthesia: General Risk of > 500 ml blood loss (7ml/kg in children): No Meds/Allergies Current Medications: Current Medications Generic Name Dose Route Start Last Admin Trade Name Freq PRN Reason Stop Dose Admin Amlodipine Besylat e 10 mg 05/12/20 06:00 05/14/20 05:20 Amlodipine 10 Mg Tablet PO 10 mg QAM NAY Administration Atenolol 100 mg 05/14/20 06:00 05/14/20 05:20 Atenolol 50 Mg T ablet PO 100 mg QAM NAY Administration Heparin Sodium (Be ef Lung) 5,000 unit 05/11/20 19:00 05/14/20 02:56 Heparin 5,000 Un it/Ml Inj 1 Ml SUBCUT Not Given Q8H NAY Sodium Chloride 1,000 mls @ 30 ml s/hr 05/14/20 11:45 05/14/20 11:40 Sodium Chloride 0.9% IV 05/15/20 11:44 30 mls/hr .Q24H NAY Administration Olanzapine 5 mg 05/13/20 21:00 05/13/20 20:24 Olanzapine 5 Mg Tablet PO 5 mg BEDTIME NAY Administration Olanzapine 2.5 mg 05/14/20 09:00 05/14/20 10:14 Olanzapine 5 Mg Tablet PO 2.5 mg DAILY NAY Administration PFSH Anesthesia PFSH: Medical History Bilateral renal cysts HTN (hypertension) Hyperlipemia Low back pain Sciatica Surgical History H/O knee surgery H/O partial nephrectomy History of facial surgery Family History Father , [place] CAD (coronary artery disease) Social History Smoking and tobacco status: current every day smoker Alcohol intake: never Substance/Drug Use: former Date of last use: Long time ago. Marijuana. Household members: none Marital status: Current occupational status: retired Data Anesthesia CBC & Chem 7: 05/14/20 05:15 05/14/20 05:15 Other Labs: Laboratory Results - last 48 hr 05/13/20 05/13/20 05/13/20 02:50 02:50 05:06 WBC RBC Hgb Hct MCV MCH MCHC RDW Plt Count MPV Neut % (Auto) Lymph % (Auto) [place] % (Auto) Eos % (Auto) Baso % (Auto) Neut # (Auto) Lymph # (Auto) [place] # (Auto) Eos # (Auto) Baso # (Auto) Nucleated RBC % (auto) Nucleated RBCs # Sodium 144 Potassium 3.8 Chloride 108 H Carbon Dioxide 24 Anion Gap 15.8 BUN 22 Creatinine 1.5 H GFR Calculation Not Reportable Glucose 126 H Calculated Osmolality 303 H Calcium 8.9 Total Bilirubin 0.9 AST 42 H ALT 10 Alkaline Phosphatase 78 Total Protein 6.9 Albumin 4.3 Globulin 2.6 Urine Color Yellow Urine Appearance Clear Urine pH 5 Ur Specific Felt 1.020 Urine Protein Trace Urine Glucose (UA) Trace H Urine Ketones 1+ H Urine Blood 3+ H Urine Nitrate Negative Urine Bilirubin Neg Urine Urobilinogen Norm Ur Leukocyte Esterase Negative Urine RBC 5-10 H Urine WBC 0-4 H Ur Squamous Epith Cells 0-4 H Amorphous Sediment Not Reportable Urine Bacteria Trace Hyaline Casts 0-4 H Urine Mucus 1+ Urine Opiates Screen Negative Ur Barbiturates Screen Negative Ur Phencyclidine Scrn Negative Ur Amphetamines Screen Negative U Benzodiazepines Scrn Negative Urine Cocaine Screen Negative U Marijuana (THC) Screen Negative 05/13/20 05/14/20 05/14/20 05:06 05:15 05:15 WBC 6.0 5.8 RBC 4.74 4.84 Hgb 15.0 15.5 Hct 42.9 44.5 MCV 90.5 91.9 MCH 31.6 32.0 MCHC 35.0 34.8 RDW 13.2 13.3 Plt Count 144 153 MPV 10.2 10.8 H Neut % (Auto) 73.5 59.9 Lymph % (Auto) 16.2 27.8 [place] % (Auto) 9.0 8.4 Eos % (Auto) 0.7 3.1 Baso % (Auto) 0.3 0.5 Neut # (Auto) 4.40 3.47 Lymph # (Auto) 1.0 1.6 [place] # (Auto) 0.5 0.5 Eos # (Auto) 0.0 0.2 Baso # (Auto) 0.0 0.0 Nucleated RBC % (auto) 0 0 Nucleated RBCs # 0.0 0.0 Sodium 143 Potassium 3.5 Chloride 105 Carbon Dioxide 26 Anion Gap 15.5 BUN 21 Creatinine 1.5 H GFR Calculation Not Reportable Glucose 91 Calculated Osmolality 299 H Calcium 9.0 Total Bilirubin 1.1 AST 38 ALT 16 Alkaline Phosphatase 78 Total Protein 6.9 Albumin 4.1 Globulin 2.8 Urine Color Urine Appearance Urine pH Ur Specific Felt Urine Protein Urine Glucose (UA) Urine Ketones Urine Blood Urine Nitrate Urine Bilirubin Urine Urobilinogen Ur Leukocyte Esterase Urine RBC Urine WBC Ur Squamous Epith Cells Amorphous Sediment Urine Bacteria Hyaline Casts Urine Mucus Urine Opiates Screen Ur Barbiturates Screen Ur Phencyclidine Scrn Ur Amphetamines Screen U Benzodiazepines Scrn Urine Cocaine Screen U Marijuana (THC) Screen Cardiac Studies: No Data to Display
[2020-05-14] MEDS: lidocaine 1% INJ 20 mL XX (12:43)
[2020-05-14] MEDS: EPINEPHrine 1 mg/mL INJ (12:44)
[2020-05-14] MEDS: EPINEPHrine 1 mg/mL INJ XX (12:46)
--- NOTE | 2020-05-14 12:56 | PM.OP ---
Operative Report Date of procedure: May 14, 2020 Pre-op Diagnosis: LEFT LUNG MALIGNANCY Post-op diagnosis: same Brief History: This is 74-year-old gentleman who was admitted to the hospital with a movement disorder and was found to have left hilar lung mass. The patient is coming in for bronchoscopic evaluation. On the computed tomography of the chest it appeared that the left hilar lung mass was invading the aorta. Procedure: Name of the procedure: Bronchoscopy with inspection of the airway, endobronchial ultrasound-guided transbronchial needle aspiration of left hilar lung mass and control of bleeding. Indication: Lola lung cancer Anesthesia: General anesthesia. Local anesthesia: The vocal cords, rachel in the right and left mainstem bronchi were anesthetized with 1% lidocaine, 3 mL. Description of the procedure: The procedure was explained to the patient and the consent was obtained. The patient was brought to the OR. The patient underwent laryngeal mask airway placement for general anesthesia. Following induction of general anesthesia, the bronchoscope was advanced through the LMA. Vocal cords are normal. The vocal cords are in stages 1% lidocaine, 3 mL was used. The upper and lower trachea appeared to be erythematous, no endotracheal lesion was seen. The rachel was sharp. The rachel, the right and left mainstem bronchi are anesthetized with 1% lidocaine. In a systematic manner bilateral bronchial tree was then examined. The bronchoscope was advanced into the left mainstem bronchus. The left upper lobe, lingula and left lower lobe bronchi were examined up to the third subsegmental level and no abnormalities were identified. There is no endobronchial lesion, active bleeding or mucous plug. The bronchoscope was then introduced into the right mainstem bronchus. The right upper lobe, right middle lobe and right lower lobe bronchi were examined up to the third subsegmental level and no abnormalities were identified. There was mucus throughout the lungs. The endobronchial ultrasound was introduced through the LMA. No significant midsternal or right hilar lymphadenopathy was identified. Left hilar lung mass was identified with ultrasound guidance. Fine-needle aspiration was performed from the left hilar lung mass. Complications: Post fine-needle aspiration, the patient had grade 2 bleeding. The bleeding was controlled with cold saline. Samples: 1. Fine-needle aspiration samples were sent for histopathology.
--- NOTE | 2020-05-14 13:15 | SUR.PHASEI ---
PT SLEEPS QUIETLY , GOOD RESP NOTED PT NOW ON RA, PT SX EARLIER WITH YANKER AND ORAL AIRWAY OUT PT DID NOT AWAKE, WILL LET PT REST, VSS NO OBVIOUS DISTRESS NOTED.
--- NOTE | 2020-05-14 14:19 | PC.SOCIAL ---
*IMM UPDATE* java technical manager gave patient IMM update, gave him copy of page 2 of IMM. 05/14/20 @ 2:15pm Initialed, dated, timed and placed in chart.
--- NOTE | 2020-05-14 14:50 | ANE.PACU2 ---
Inpatient post-anesthesia follow up: Airway intact: Yes Vital signs: Temperature 98.4 F Pulse Rate [Monito r] 75 Pulse Rate 74 Respiratory Rate 17 Blood Pressure [Ri ght Arm] 132/84 Blood Pressure 155/72 Pulse Oximetry 93 Oxygen Delivery Me thod Room Air Oxygen Flow Rate 8 Fraction of Inspir ed Oxygen Hydration adequate: Yes Nausea and vomiting: No Pain level: 2 Mental status: Baseline
--- NOTE | 2020-05-14 19:52 | CTR_ITS ---
PROCEDURE INFORMATION: Exam: CT Head Without Contrast Exam date and time: 05/14/2020 7:53 PM Age: 74 years old Clinical indication: Injury or trauma; Fall; Blunt trauma (contusions or hematomas); Patient HX: PT has uncontrolled twitching; Additional info: Unwitnessed fall TECHNIQUE: Imaging protocol: Computed tomography of the head without contrast. Total images: 206 Radiation optimization: All CT scans at this facility use at least one of these dose optimization techniques: automated exposure control; mA and/or kV adjustment per patient size (includes targeted exams where dose is matched to clinical indication); or iterative reconstruction. COMPARISON: CT head wo con* [id number] 05/11/2020 11:50 AM RADIATION DOSE METRICS: Total DLP (mGy-cm): 1559.92 FINDINGS: Brain: No evidence of acute intracranial pathologic process, hemorrhage, or trauma. Advanced small vessel ischemic disease with senile periventricular leukomalacia. Advanced cerebral and cerebellar atrophy with ventricular dilatation greater than that anticipated for patient's chronological age. Cerebral arteriosclerosis. No mass effect. No midline shift. No generalized cerebral edema. 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 Cerebral ventricles: No ventriculomegaly. Bones/joints: Evidence of a previous left orbital fracture repair. No visible acute osseous abnormality. Paranasal sinuses: Chronic right maxillary sinusitis. No visible evidence of acute paranasal sinus disease. Mastoid air cells: Visualized mastoid air cells are well aerated. Soft tissues: Unremarkable. Other findings: Motion artifact. CT/CT head wo con* [id number] IMPRESSION: No evidence of acute intracranial pathologic process, hemorrhage, or trauma. Radiation Dose CTDIVOL = (mGy): DLP = 1559.92 (mGy-cm)
[2020-05-14] MEDS: OLANZapine 5 mg TABLET PO (21:23)
[2020-05-15] VITALS: BP 164/90; PULSE 81; RESP 17; TEMP 37.6; O2SAT 98
[2020-05-15 04:00] VITALS: BP 149/91; PULSE 80; RESP 17; TEMP 37.6; O2SAT 96
[2020-05-15] MEDS: amlodipine 10 mg Tablet PO (06:05)
[2020-05-15 06:40] LABS: Basophils % 0.3 %; Eosinophils # 0.1 10^3/uL (0.0-0.8); Eosinophils % 0.4 %; Hematocrit 44.2 % (42.0-52.0); Hemoglobin 15.6 g/dL (11.7-16.6); Lymphocytes # 1.3 10^3/uL (0.8-4.8); Lymphocytes % 11.1 %; Mean Corpuscular HGB Conc 35.3 g/dL (30.0-36.0); Mean Corpuscular Hemoglobin 31.6 pg (28.0-34.0); Mean Corpuscular Volume 89.5 fL (80-94); Mean Platelet Volume 10.8 fL (7.4-10.4); Monocytes # 0.8 10^3/uL (0.2-0.9); Monocytes % 6.4 %; Neutrophils # 9.79 10^3/uL (1.8-7.7); Neutrophils % 81.5 %; Nucleated Red Blood Cells % 0 %; Platelet Count 167 10^3/cmm (130-400); Red Blood Count 4.94 10^6/uL (4.1-5.3)
[2020-05-15 07:00] LABS: Alanine Aminotransferase 28 U/L (0-41); Albumin Level 4.2 g/dL (3.5-5.2); Alkaline Phosphatase 86 IU/L (40-130); Anion Gap 16.9 (5-19); Aspartate Amino Transferase 37 U/L (0-40); Blood Urea Nitrogen 22 mg/dL (8-23); Calcium 8.9 mg/dL (8.5-10.5); Carbon Dioxide 22 mmol/L (22-29); Chloride 104 mmol/L (98-107); Globulin 3.1 g/dL (1.3-4.6); Glucose 114 mg/dL (65-115); Osmolality Calculated 292 mOsm/kg (285-295); Potassium 3.9 mmol/L (3.5-5.1); Sodium 139 mmol/L (136-145); Total Bilirubin 1.6 mg/dL (0.15-1.2); Total Protein 7.3 g/dL (6.6-8.7)
[2020-05-15 07:41] VITALS: BP 155/89; PULSE 78; RESP 16; TEMP 36.9; O2SAT 96
[2020-05-15] MEDS: OLANZapine 5 mg TABLET 2.5 MG PO (09:25)
[2020-05-15 10:16] LABS: Glucose Point of Care 168 mg/dL (70-110)
[2020-05-15 10:54] VITALS: BP 155/94; PULSE 92; RESP 17; TEMP 36.7; O2SAT 96
[2020-05-15 15:06] VITALS: BP 155/92; PULSE 97; RESP 17; TEMP 36.4; O2SAT 94
[2020-05-15 20:00] VITALS: BP 142/68; PULSE 88; RESP 28; TEMP 37; O2SAT 97
[2020-05-15 20:17] LABS: SARS Covid-2 Antigen Negative (Negative)
--- NOTE | 2020-05-15 20:36 | P.PN_ITS ---
Subjective Subjective: Interval history: He says overall today he is feeling little bit better. At the same time he appears to be somewhat confused. He does not remember exactly where he is. States the year is 2022. Denies chest pain. Denies trouble breathing. Vitals/I&O/Wt Last Vital Signs Temp 98.6 F 05/15/20 20:00 Pulse 88 05/15/20 20:00 Resp 28 H 05/15/20 20:00 BP 142/68 05/15/20 20:00 Pulse Ox 97 05/15/20 20:00 05/15/20 05/15/20 05/15/20 06:59 14:59 22:59 Intake Total 480 / 480 120 / 600 Output Total 0 / 0 Balance 0 / 820 480 / 480 120 / 600 Physical Exam Const: COMMON NORMALS: no acute distress and alert; negative for patient oriented x3 GENERAL APPEARANCE: cooperative ORIENTATION/CONSCIOUSNESS: Yes awake and Yes confused HENMT: COMMON NORMALS: oropharynx normal Neck/C-Spine: COMMON NORMALS: no meningeal signs and no JVD Resp: COMMON NORMALS: normal respiratory effort and clear to auscultation bilaterally AUSCULTATION: clear to auscultation bilaterally Cardio: COMMON NORMALS: no JVD, regular rhythm, S1 normal heart sound present, S2 normal heart sound present and No murmurs present (Cardio) RHYTHM: regular rhythm HEART SOUNDS: S1 normal heart sound present and S2 normal heart sound present GI: COMMON NORMALS: Normal to inspection, nondistended, normoactive bowel sounds present, Soft to palpation and non-tender PALPATION: Yes Soft to palpation Extremity: COMMON NORMALS: no joint enlargement and no pedal edema Neuro: COMMON NORMALS: moves all extremities; negative for patient oriented x3 SENSORIUM/ORIENTATION: Yes alert MENINGEAL SIGNS: Yes no meningeal signs CRANIAL NERVES: Yes CN normal except as noted and Yes other SPEECH: speech normal SENSORY EXAM: Yes extremities (Paresthesia/sensory loss distal extremities, although cannot identify SL) MOTOR EXAM: Abnormal muscle tone present spastic: right upper extremity (All extremities mild, but worst RUE) Skin: COMMON NORMALS: no rashes or lesions noted GENERAL SKIN EXAM: no rashes or lesions noted OTHER: No active bleeding from skin tear over palmar wrist, ulnar aspect. Healing. Tattoos. Data : 05/15/20 06:11 05/15/20 06:11 A&P Assessment and plan (1) Myoclonus: Severe myoclonus, requiring 2 person assist. With elevated risk of falls. Unable to leave independently at this time. Pending placement arrangements to SNF. Continue supportive care. 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 Noted new mass in the left lung, likely malignancy. Discussed with neurology, appears this is possibly paraneoplastic symptom. Anti-Hu and anti-NMDA have been requested, although doubt that he will be back soon. Appreciate results of EEG. It unfortunately did not diminish the possible neurodegenerative condition, possible CJD considered. He appears to fit criteria otherwise as per neurologic assessment. Appears to have progressive and disabling symptoms with myoclonus, dystonia, gait disturbance, sensory abnormality, also memory loss, declining visual acuity. Appreciate neurological assessment. MRI was considered discussed with patient, unfortunately with history of facial reconstruction surgery with metal plate MRI is not a possibility. Normal B12, folic acid. PT and OT is requested. Status: Acute (2) Lung mass: Status post bronchoscopy and biopsy. Pending pathology. At discharge refer for PET scan, follow-up with pulmonology. Discussed with him and his son Jaydon Sharma today. Could not reach his friend Reid Espinoza. Discussed with patient. He is agreeable to proceed with additional diagnostic investigations with pulmonology, bronchoscopy as needed. He also names, in case he was unable to make his own decisions, surrogate decision makers both his son Jaydon Chow, , as well as his very close friend Reid Espinoza [phone]. New lung mass identified on CT chest, left side, with invasion of multiple lobes, intrabronchial invasion, some postobstructive bronchiectasis. 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 Left hilar mass with possible invasion to thoracic aorta. Requesting pulmonology consultation. Tentative plan for possible tissue sample tomorrow. Keep n.p.o. Status: Acute (3) Encephalopathy acute: This appears to have mostly improved. Still on and off confusion. Has had rapidly progressive memory loss. Not sure whether some of this is secondary to sundowning. Does not appear to have infectious or metabolic cause at this time. Continue to monitor for any changes he may identify a different cause in addition to paraneoplastic syndrome and lung malignancy. Discussed with his son possibility of brain meta stasis which cannot be assessed with MRI. Plans for PET scan after discharge. Zyprexa 2.5 mg the morning, 5 in the evening, repeat 5 in the evening if needed. Yesterday he fell in his room. Does not appear to have pain or tenderness in any of his extremities or his back. CT head without acute change. In the current condition unable to return home. Discharge planning working on placement. Status: Acute (4) Dystonia: Status: Acute (5) Carotid stenosis: Discussed with radiology, right side carotid stenosis is 22%. Left side 65%. Status: Acute (6) Spinal stenosis: Cervical spinal stenosis noted with moderate to severe multilevel central and foraminal stenosis due to combination of disc disease, osteophytosis and facet arthritis. Mild anterior wedging T1 and T3. Consider outpatient appointment with Ortho spine surgery depending on long-term condition and goals of care. Status: Acute (7) HTN (hypertension): Increased atenolol dose to 100 mg. Monitor. Monitor blood pressures. Continue amlodipine, atenolol, lisinopril. Status: Acute (8) HAIDER (acute kidney injury): HAIDER with mild improvement. Creatinine stabilized around 1.5. DC IV flu id. Continue to monitor. Status: Acute Attestations Medical Necessity Statement*: Continue admission for assessment of management of rapidly progressive dystonia, myoclonus, paraneoplastic syndrome with noted new malignancy. Severe functional decline and debility, requiring placement to group home facility. 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
[2020-05-15] MEDS: OLANZapine 5 mg TABLET PO (21:12)
[2020-05-16] VITALS: BP 142/90; PULSE 83; RESP 20; TEMP 37.8; O2SAT 94
[2020-05-16 04:00] VITALS: BP 164/92; PULSE 90; RESP 22; TEMP 37.7; O2SAT 94
[2020-05-16 05:12] LABS: Basophils % 0.4 %; Eosinophils # 0.1 10^3/uL (0.0-0.8); Eosinophils % 0.8 %; Hematocrit 41.2 % (42.0-52.0); Hemoglobin 14.7 g/dL (11.7-16.6); Lymphocytes # 1.1 10^3/uL (0.8-4.8); Lymphocytes % 12.7 %; Mean Corpuscular HGB Conc 35.7 g/dL (30.0-36.0); Mean Corpuscular Hemoglobin 31.7 pg (28.0-34.0); Mean Platelet Volume 10.8 fL (7.4-10.4); Monocytes # 0.6 10^3/uL (0.2-0.9); Monocytes % 6.6 %; Neutrophils # 6.71 10^3/uL (1.8-7.7); Neutrophils % 79.1 %; Nucleated Red Blood Cells % 0 %; Platelet Count 143 10^3/cmm (130-400); Red Blood Count 4.63 10^6/uL (4.1-5.3); Red Cell Distribution Width 13.2 % (12.1-15.1); White Blood Count 8.5 10^3/uL (4.0-10.0)
[2020-05-16] MEDS: amlodipine 10 mg Tablet PO (05:12)
[2020-05-16 06:03] LABS: Alanine Aminotransferase 21 U/L (0-41); Albumin Level 3.7 g/dL (3.5-5.2); Alkaline Phosphatase 73 IU/L (40-130); Anion Gap 15.4 (5-19); Aspartate Amino Transferase 23 U/L (0-40); Blood Urea Nitrogen 24 mg/dL (8-23); Calcium 8.5 mg/dL (8.5-10.5); Carbon Dioxide 22 mmol/L (22-29); Chloride 105 mmol/L (98-107); Globulin 2.7 g/dL (1.3-4.6); Glucose 117 mg/dL (65-115); Osmolality Calculated 293 mOsm/kg (285-295); Potassium 3.4 mmol/L (3.5-5.1); Sodium 139 mmol/L (136-145); Total Bilirubin 1.4 mg/dL (0.15-1.2); Total Protein 6.4 g/dL (6.6-8.7)
[2020-05-16 08:00] VITALS: BP 126/72; PULSE 68; RESP 18; TEMP 36.9; O2SAT 94
--- NOTE | 2020-05-16 08:20 | XRR_ITS ---
PROCEDURE INFORMATION: Exam: XR Chest Exam date and time: 05/16/2020 9:02 AM Age: 74 years old Clinical indication: Fever TECHNIQUE: Imaging protocol: XR of the chest Views: 1 view. COMPARISON: CT chest con [id number] 05/13/2020 1:00 PM FINDINGS: Lungs: No acute infiltrate. Pleural spaces: No pleural effusion. Heart: Cardiac silhouette upper limits of normal in size. Vasculature: Calcification and ectasia of the thoracic aorta. Bones/joints: Degenerative change. Nilsa: 4.6 cm nodular density overlying the left hilum , which was better evaluated with CT XR/XR chest 1V portable [id number] IMPRESSION: 4.6 cm nodular density overlying the left hilum.
--- NOTE | 2020-05-16 09:55 | PC.SOCIAL ---
IMM updated Updated pt & pt's son on Pg 2 IMM. No questions voiced. Provided pt a copy. Initialed, dated, & timed copy in chart.
[2020-05-16] MEDS: levofloxacin-dextrose 5 % 750 MG/150 ML PREMIX 100 MG IV (10:47)
[2020-05-16] MEDS: OLANZapine 5 mg TABLET 2.5 MG PO (10:49)
[2020-05-16 11:01] VITALS: BP 136/72; PULSE 76; RESP 18; TEMP 37.2; O2SAT 93
[2020-05-16 11:16] LABS: Glucose Point of Care 126 mg/dL (70-110)
[2020-05-16 12:28] LABS: Lactic Sepsis W/Reflex 0.9 mmol/L (0.5-2.2)
[2020-05-16] MEDS: cefepime 1,000 MG in sodium chloride 0.9% (plus) 50 ML 100 MG IV ×2 (12:51→21:31)
--- NOTE | 2020-05-16 13:12 | USR_ITS ---
PROCEDURE INFORMATION: Exam: US Duplex Left Lower Extremity Veins, Limited Exam date and time: 05/16/2020 2:28 PM Age: 74 years old Clinical indication: Other: Redness; Additional info: Fever, redness to lle TECHNIQUE: Imaging protocol: Real-time Duplex ultrasound of the Left Lower Extremity with 2-D fraire scale, color Doppler flow and spectral waveform analysis with image documentation. Limited exam focused on the left lower extremity veins. COMPARISON: No relevant prior studies available. FINDINGS: Left deep veins: Unremarkable. The common femoral, femoral, proximal profunda femoral and popliteal veins are patent without thrombus. Normal Doppler waveforms. Normal compressibility and/or augmentation response. Left superficial veins: Unremarkable. Saphenofemoral junction is patent without thrombus. Soft tissues: Unremarkable. US/CV venous duplex [facility] [id number] IMPRESSION: No evidence of deep vein thrombosis.
[2020-05-16] MEDS: vancomycin 1,250 MG/250 ML PIGGYBACK 250 MG IV (13:27)
--- NOTE | 2020-05-16 14:02 | PM.PN ---
Subjective Subjective: Interval history: He feels not as good today. He cannot really tell what may be different. Denies cough with food or drink. He is bringing up some phlegm. Denies nausea vomiting or diarrhea. Denies dysuria. Denies any pain anywhere. No headache. He is being visited by his son Jaydon, who introduces himself as the first born who is visiting him here after seeing a post on Facebook by his brother Jaydon Sharma with whom I spoke on the phone about his father's advanced lung cancer. Vitals/I&O/Wt Last Vital Signs Temp 98.9 F 05/16/20 11:01 Pulse 76 05/16/20 11:01 Resp 18 05/16/20 11:01 BP 136/72 05/16/20 11:01 Pulse Ox 93 05/16/20 11:01 05/15/20 05/16/20 05/16/20 22:59 06:59 14:59 Intake Total 120 / 600 360 / 360 Balance 120 / 600 360 / 360 Physical Exam Const: COMMON NORMALS: no acute distress and alert GENERAL APPEARANCE: cooperative and frail appearing ORIENTATION/CONSCIOUSNESS: Yes awake OTHER: Having a bit more difficult time communicating today. Weaker. HENMT: COMMON NORMALS: oropharynx normal Neck/C-Spine: COMMON NORMALS: no meningeal signs and no JVD Resp: COMMON NORMALS: normal respiratory effort AUSCULTATION: rhonchi Cardio: COMMON NORMALS: no JVD, regular rhythm, S1 normal heart sound present, S2 normal heart sound present and No murmurs present (Cardio) RHYTHM: regular rhythm HEART SOUNDS: S1 normal heart sound present and S2 normal heart sound present GI: COMMON NORMALS: Normal to inspection, nondistended, normoactive bowel sounds present, Soft to palpation and non-tender PALPATION: Yes Soft to palpation Extremity: COMMON NORMALS: no joint enlargement and no pedal edema Neuro: COMMON NORMALS: moves all extremities SENSORIUM/ORIENTATION: Yes alert MENINGEAL SIGNS: Yes no meningeal signs CRANIAL NERVES: Yes CN normal except as noted and Yes other SPEECH: speech normal GAIT: Yes Unable to assess gait SENSORY EXAM: Yes extremities (Paresthesia/sensory loss distal extremities, although cannot identify SL) MOTOR EXAM: Abnormal muscle tone present spastic: right upper extremity (All extremities mild, but worst RUE) Skin: GENERAL SKIN EXAM: ecchymosis (Left posterior medial calf, lower anterior barajas) Data : 05/16/20 04:19 05/16/20 04:19 Micro: Microbiology 05/16/20 10:03 Blood Culture - Preliminary Blood SPECIMEN COLLECTED 05/16/20 09:53 Blood Culture - Preliminary Blood SPECIMEN COLLECTED A&P Assessment and plan (1) Sepsis: Possible sepsis. Fever last night up to 100.9. With tachypnea, 28. Requested blood culture, lactic acid. Starting on broad-spectrum antibiotics with cefepime, Levaquin, Vanco. Chest x-ray requested, with noted nodule in the left hilum better visualized on CT. Does not appear to have acute pneumonia. Mental status has been on and off, and so aspiration may be a consideration. Monitor. Speech therapy evaluation requested. Also noted T bili elevation up to 1.4, yesterday 1.6. For now n.p.o. for hepatobiliary ultrasound. Status: Acute (2) Myoclonus: Discussed with his son Jaydon Sharma (not the oldest son Jaydon visiting today) yesterday on the phone regarding recurrent risk of falls, fall in the hospital. Plan has been for placement to retirement facility now that he has had his biopsy so that he may follow-up with pulmonology and with PET scan on outpatient side. However, now with possible sepsis. Pending placement arrangements to SNF which is now delayed by fever, possible sepsis. Continue supportive care. 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 Noted new mass in the left lung, likely malignancy. Discussed with neurology, appears this is possibly paraneoplastic symptom. Anti-Hu and anti-NMDA have been requested, although doubt that he will be back soon. Appreciate results of EEG. It unfortunately did not diminish the possible neurodegenerative condition, possible CJD considered. He appears to fit criteria otherwise as per neurologic assessment. Appears to have progressive and disabling symptoms with myoclonus, dystonia, gait disturbance, sensory abnormality, also memory loss, declining visual acuity. Appreciate neurological assessment. MRI was considered discussed with patient, unfortunately with history of facial reconstruction surgery with metal plate MRI is not a possibility. Normal B12, folic acid. PT and OT is requested. Status: Acute (3) Lung mass: Status post bronchoscopy and biopsy. Pending pathology. At discharge refer for PET scan, follow-up with pulmonology. Discussed with him and his son Jaydon Sharma. Discussed with patient. He is agreeable to proceed with additional diagnostic investigations with pulmonology, bronchoscopy as needed. He also names, in case he was unable to make his own decisions, surrogate decision makers both his son Jaydon Sharma, , as well as his very close friend Reid Espinoza [phone]. (Of note patient appears to have another son named Jaydon, his first born who is visiting him today). New lung mass identified on CT chest, left side, with invasion of multiple lobes, intrabronchial invasion, some postobstructive bronchiectasis. 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 Left hilar mass with possible invasion to thoracic aorta. Status: Acute (4) Encephalopathy acute: Some on and off fluctuation of mental status. Difficult to say whether this is part of his general condition, although currently appears to have development of possible sepsis. Possible delirium secondary to sepsis. Assessment treatment of possible infection as above. Continue supportive care. Fall precautions. Discussed with his son possibility of brain meta stasis which cannot be assessed with MRI. Plans for PET scan after discharge. D noted to be high risk of aspiration. ST evaluation requested. Zyprexa 2.5 mg the morning, 5 in the evening, repeat 5 in the evening if needed. On 05/14 he fell in his room. Noted bruising on the left lower leg. Will request duplex ultrasound. Does not appear to have pain or tenderness in any of his extremities or his back. CT head without acute change. In the current condition unable to return home. Discharge planning working on placement. Status: Acute (5) Dystonia: Status: Acute (6) Carotid stenosis: Discussed with radiology, right side carotid stenosis is 22%. Left side 65%. Status: Acute (7) Spinal stenosis: Cervical spinal stenosis noted with moderate to severe multilevel central and foraminal stenosis due to combination of disc disease, osteophytosis and facet arthritis. Mild anterior wedging T1 and T3. Consider outpatient appointment with Ortho spine surgery depending on long-term condition and goals of care. Status: Acute (8) HTN (hypertension): Increased atenolol dose to 100 mg. Monitor. Monitor blood pressures. Continue amlodipine, atenolol, lisinopril. Status: Acute (9) HAIDER (acute kidney injury): HAIDER with mild improvement. Creatinine stabilized around 1.5. DC IV fluid. Continue to monitor. Status: Acute Attestations Medical Necessity Statement*: Continue admission for assessment of management of fever, possible sepsis. Coding Level of Care Code Acute Forensic Medical Examiner for Chg Fwd Diagnoses Sepsis A41.9 Myoclonus G25.3 Lung mass R91.8 Encephalopathy acute G93.40 Dystonia G24.9 Carotid stenosis I65.29 Spinal stenosis M48.00 HTN (hypertension) I10 HAIDER (acute kidney injury) N17.9
[2020-05-16 15:44] VITALS: BP 136/78; PULSE 66; RESP 18; TEMP 36.8; O2SAT 94
[2020-05-16 16:59] LABS: Glucose Point of Care 116 mg/dL (70-110)
[2020-05-16] MEDS: OLANZapine 5 mg TABLET PO (20:24)
[2020-05-16 20:34] VITALS: BP 164/90; PULSE 80; RESP 22; TEMP 36.6; O2SAT 97
[2020-05-17] VITALS (7 sets, daily range): BP systolic 138–179; BP diastolic 67–98; PULSE 71–92; RESP 18–24; TEMP 36.4–37.7; O2SAT 91–95
[2020-05-17] MEDS: vancomycin 1,250 MG/250 ML PIGGYBACK 250 MG IV (05:26)
--- NOTE | 2020-05-17 06:00 | USR_ITS ---
PROCEDURE INFORMATION: Exam: US Abdomen, Limited; Right Upper Quadrant Exam date and time: 05/17/2020 6:58 AM Age: 74 years old Clinical indication: Abnormal findings; Abnormal lab test; Other: Elevated t. Bili; Fever; Additional info: Hepatobiliary - fever, elev t bili TECHNIQUE: Imaging protocol: US abdomen. Real time ultrasound with image documentation. Limited exam focused on the right upper quadrant. COMPARISON: CT abdomen pelvis wo con [id number] 10/04/2019 12:47 PM FINDINGS: Liver: The left hepatic lobe is partially obscured by overlying bowel gas. The right hepatic lobe is unremarkable. No mass lesion visualized. Gallbladder: The gallbladder is obscured by overlying bowel gas. Negative sonographic Hare's sign. Common bile duct: Normal. No stones. No dilation. Pancreas: The pancreas is obscured by overlying bowel gas. Right kidney: Normal echogenicity. There is caliceal prominence in the right upper kidney. There is a cyst along the lateral aspect of the right kidney, measuring 2.7 x 3.0 x 2.8 cm. Portal venous: Patent main portal vein with normal direction of flow. US/US abdomen limited [id number] IMPRESSION: 1. Limited evaluation of the left hepatic lobe, and nonvisualization of the pancreas and gallbladder. 2. Mild caliceal prominence in the right upper kidney.
[2020-05-17 06:24] LABS: Basophils % 0.3 %; Eosinophils # 0.1 10^3/uL (0.0-0.8); Eosinophils % 1.3 %; Hematocrit 45.1 % (42.0-52.0); Hemoglobin 15.6 g/dL (11.7-16.6); Lymphocytes # 0.7 10^3/uL (0.8-4.8); Lymphocytes % 9.5 %; Mean Corpuscular HGB Conc 34.6 g/dL (30.0-36.0); Mean Corpuscular Hemoglobin 32.1 pg (28.0-34.0); Mean Corpuscular Volume 92.8 fL (80-94); Mean Platelet Volume 10.8 fL (7.4-10.4); Monocytes # 0.5 10^3/uL (0.2-0.9); Monocytes % 7.2 %; Neutrophils # 5.73 10^3/uL (1.8-7.7); Neutrophils % 81.4 %; Nucleated Red Blood Cells % 0 %; Platelet Count 140 10^3/cmm (130-400); Red Blood Count 4.86 10^6/uL (4.1-5.3)
[2020-05-17 06:41] LABS: Alanine Aminotransferase 18 U/L (0-41); Albumin Level 3.5 g/dL (3.5-5.2); Alkaline Phosphatase 74 IU/L (40-130); Blood Urea Nitrogen 25 mg/dL (8-23); Calcium 8.6 mg/dL (8.5-10.5); Carbon Dioxide 17 mmol/L (22-29); Chloride 108 mmol/L (98-107); Globulin 2.9 g/dL (1.3-4.6); Glucose 124 mg/dL (65-115); Osmolality Calculated 294 mOsm/kg (285-295); Sodium 139 mmol/L (136-145); Total Bilirubin 1.1 mg/dL (0.15-1.2); Total Protein 6.4 g/dL (6.6-8.7)
[2020-05-17 06:49] LABS: Anion Gap 17.9 (5-19); Aspartate Amino Transferase 21 U/L (0-40); Potassium 3.9 mmol/L (3.5-5.1)
[2020-05-17] MEDS: atenolol 50 mg Tablet 100 MG PO (08:42)
[2020-05-17] MEDS: amlodipine 10 mg Tablet PO (08:43)
[2020-05-17] MEDS: OLANZapine 5 mg TABLET 2.5 MG PO (08:43)
[2020-05-17] MEDS: levofloxacin-dextrose 5 % 750 MG/150 ML PREMIX 100 MG IV (09:31)
[2020-05-17 11:07] LABS: Glucose Point of Care 136 mg/dL (70-110)
[2020-05-17] MEDS: cefepime 1,000 MG in sodium chloride 0.9% (plus) 50 ML 100 MG IV ×2 (11:54→23:07)
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
--- NOTE | 2020-05-17 15:29 | PC.NURSE ---
Clinic Clerk collect a urine specimen by an in and out cath. Specimen was sent to lab.
[2020-05-17 16:01] LABS: Glucose Urine UA Norm (Normal); Ketones Urine 2+ (Negative); Protein Urine Trace (Negative); Specific Gravity, Urine 1.025 (1.005-1.030); Urine Appearance Clear (CLEAR); Urine Color Yellow (Yellow); pH Urine 5 (5-7)
[2020-05-17 16:02] LABS: Add Urine Culture? Yes; Add Urine Microscopic? YES; Bacteria Urine 2+ /hpf; Bilirubin Urine Neg (Negative); Blood Urine 2+ (Negative); Leukocyte Esterase Urine Negative (Negative); Nitrate Urine Negative (Negative); RBC Urine 0-4 /hpf (0-2); Transitional Epi Cells Urine 0-4 /hpf; Urobilinogen Urine Norm (Negative)
[2020-05-17] MEDS: lisinopril 20 mg Tablet PO (16:23)
[2020-05-17 16:51] LABS: Glucose Point of Care 141 mg/dL (70-110)
[2020-05-17] MEDS: OLANZapine 5 mg TABLET PO (21:35)
[2020-05-18 02:00] VITALS: BP 170/92; PULSE 82; RESP 24; TEMP 37.2; O2SAT 91
[2020-05-18 04:00] VITALS: BP 157/88; PULSE 80; RESP 20; TEMP 36.8; O2SAT 95
[2020-05-18 05:01] LABS: Basophils % 0.3 %; Eosinophils # 0.1 10^3/uL (0.0-0.8); Eosinophils % 0.9 %; Hematocrit 41.7 % (42.0-52.0); Lymphocytes # 0.8 10^3/uL (0.8-4.8); Lymphocytes % 10.9 %; Mean Corpuscular Hemoglobin 31.6 pg (28.0-34.0); Mean Platelet Volume 10.5 fL (7.4-10.4); Monocytes # 0.7 10^3/uL (0.2-0.9); Monocytes % 9.5 %; Neutrophils # 5.91 10^3/uL (1.8-7.7); Neutrophils % 77.9 %; Nucleated Red Blood Cells % 0 %; Platelet Count 170 10^3/cmm (130-400); Red Blood Count 4.74 10^6/uL (4.1-5.3); Red Cell Distribution Width 12.8 % (12.1-15.1); White Blood Count 7.6 10^3/uL (4.0-10.0)
[2020-05-18 05:21] LABS: Alanine Aminotransferase 17 U/L (0-41); Albumin Level 3.6 g/dL (3.5-5.2); Alkaline Phosphatase 76 IU/L (40-130); Anion Gap 17.5 (5-19); Aspartate Amino Transferase 17 U/L (0-40); Blood Urea Nitrogen 24 mg/dL (8-23); Calcium 8.7 mg/dL (8.5-10.5); Carbon Dioxide 19 mmol/L (22-29); Chloride 107 mmol/L (98-107); Globulin 2.8 g/dL (1.3-4.6); Glucose 134 mg/dL (65-115); Osmolality Calculated 296 mOsm/kg (285-295); Potassium 3.5 mmol/L (3.5-5.1); Sodium 140 mmol/L (136-145); Total Bilirubin 1.3 mg/dL (0.15-1.2); Total Protein 6.4 g/dL (6.6-8.7)
[2020-05-18 07:45] VITALS: BP 158/87; PULSE 82; RESP 18; TEMP 37.1; O2SAT 93
--- NOTE | 2020-05-18 07:47 | PC.NURSE ---
patient is incontinent and had a blood clot in his brief. Care nurse Swathi White RN was notified.
[2020-05-18] MEDS: amlodipine 10 mg Tablet PO (08:51)
[2020-05-18] MEDS: OLANZapine 5 mg TABLET 2.5 MG PO (08:52)
[2020-05-18] MEDS: lisinopril 20 mg Tablet PO (08:52)
[2020-05-18] MEDS: atenolol 50 mg Tablet 100 MG PO (08:54)
[2020-05-18] MEDS: cefepime 1,000 MG in sodium chloride 0.9% (plus) 50 ML 100 MG IV (10:31)
--- NOTE | 2020-05-18 11:00 | PC.SOCIAL ---
IMM updated Updated pt & pt's daughter on Pg 2 IMM. No questions voiced. Provided pt a copy. Initialed, dated, & timed copy in chart.
[2020-05-18 12:00] VITALS: BP 158/87; PULSE 82; RESP 18; TEMP 37.1; O2SAT 93
--- NOTE | 2020-05-18 13:13 | PC.NURSE ---
Patient is incontinent and had blood clots in brief when we changed him. Swathi White RN was notified
[2020-05-18 15:13] VITALS: BP 157/87; PULSE 74; RESP 16; TEMP 36.6; O2SAT 94
[2020-05-18 17:20] LABS: Vancomycin Trough 6.7 ug/mL (10-15)
--- NOTE | 2020-05-18 17:54 | PM.PN ---
Subjective Subjective: Interval history: Daughter was in the room when I examined Mr. Sharma. He had a lucid interval during my first evaluation was able to tell me his name and date of and wanted to talk with his son. I also had a chance to talk with his son Jaydon Kelley Who is his older son and willing to take care of him and want him in [place]. On the second evaluation, patient was not coherent he kept having resting tremors and myoclonus, I had a discussion with Dr. Gotti regarding prognosis, etiology and appropriate disposition plan Considering possibility of paraneoplastic syndrome associated with lung cancer with suspicion for small cell, and acute decline in mentation and functional status his prognosis is poor, daughter would like to discuss further with the family. Mr. Sharma did not cooperate for modified barium swallow hence pur?ed honey thick diet was recommended which he seemed to tolerate at the bedside as per speech evaluation Vitals/I&O/Wt Last Vital Signs Temp 97.9 F 05/18/20 15:13 Pulse 74 05/18/20 15:13 Resp 16 05/18/20 15:13 BP 157/87 05/18/20 15:13 Pulse Ox 94 05/18/20 15:13 05/18/20 05/18/20 05/18/20 06:59 14:59 22:59 Intake Total 150 / 590 440 / 440 Balance 150 / 590 440 / 440 Physical Exam Narrative: EXAM NARRATIVE: Patient had a lucid interval on my first evaluation however mentation was fluctuant when I saw him on second visit he has pronounced myoclonus and resting tremors Left-sided facial droop Slurred speech Hyperactive reflexes S1, S2 sinus rhythm no murmur appreciated Bilateral breath sounds no audible wheezing or rhonchi No joint swelling Fluctuant mentation Scaphoid abdomen nontender Lower extremity no edema gangrene or ulcer Data : 05/18/20 04:28 05/18/20 04:28 A&P Assessment and plan (1) Lung mass: Status: Acute (2) Sepsis: Status: Acute (3) HAIDER (acute kidney injury): Status: Acute (4) Carotid stenosis: Status: Acute (5) Myoclonus: Status: Acute (6) Dystonia: Status: Acute Additional A&P Information Encephalopathy with myoclonus Resting tremors, dystonia, ataxia visual disturbance and acute decline in functional status consistent with paraneoplastic syndrome considering lung mass, biopsy report is pending, crystallographic disease was also included in differential however it is less likely and not proven hence he could not go for an MRI because of metal plate, EEG consistent with neurodegenerative disorder Patient has been involved in deer hunting as well as per the family which has shown to cause apparent disease in some cases as well however at this point paraneoplastic syndrome is highly likely He would carry a guarded prognosis considering faster/acute decline in functional status Continue pur?ed thickened diet Daughter and son Jaydon Lamas will decide further regarding hospice versus comfort care jig worker updated Discontinue B12 and folic acid at this point Aspiration pneumonia Since 05/16 he has been afebrile, discontinue IV antibiotics Carotid artery stenosis carotid stenosis left-sided 65% Right side 22%, highly doubt his candidacy for endovascular intervention at this point, I highly doubt he will be able to swallow aspirin and Plavix in tablet form considering progressive decline with prominent bulbar and extra bulbar signs and symptoms HAIDER: Resolved, creatinine seems to be around baseline 1.4 Sepsis: Resolved I had 2 family meetings, discussed case with Dr. Gotti, called his older son and coordinated care with renal social worker He will stay full code for tonight, family would update me tomorrow whether they would pursue comfort care versus hospice Daughter's phone number [phone] Jaydon Lamas older son [phone] Attestations Medical Necessity Statement*: Guarded prognosis, fluctuant mentation, multiple family meetings today, family is leaning towards hospice versus comfort measures Time Spent in Patient Care: (>than 50% of time spent in counselling and/or direct pt care on unit). 45mins Coding Level of Care Code Acute Inner Tube Tuber Machine Operator for Chg Fwd Diagnoses Lung mass R91.8 Sepsis A41.9 HAIDER (acute kidney injury) N17.9 Carotid stenosis I65.29 Myoclonus G25.3 Dystonia G24.9
[2020-05-18 19:42] VITALS: BP 152/81; PULSE 80; RESP 18; TEMP 36.3; O2SAT 92
[2020-05-18] MEDS: OLANZapine 5 mg TABLET PO (20:50)
[2020-05-19] VITALS (10 sets, daily range): BP systolic 123–169; BP diastolic 70–82; PULSE 76–85; RESP 12–32; TEMP 36.4–37.3; O2SAT 90–95
[2020-05-19 06:44] LABS: Glucose Point of Care 135 mg/dL (70-110)
--- NOTE | 2020-05-19 07:17 | PC.NURSE ---
Patients daughter does not want his vitals taken since he is resting will try again later.
[2020-05-19] MEDS: OLANZapine 5 mg TABLET 2.5 MG PO (08:01)
[2020-05-19] MEDS: atenolol 50 mg Tablet 100 MG PO (08:01)
[2020-05-19] MEDS: amlodipine 10 mg Tablet PO (08:02)
[2020-05-19] MEDS: lisinopril 20 mg Tablet PO (08:02)
--- NOTE | 2020-05-19 13:40 | PM.PN ---
Subjective Subjective: Interval history: Patient was awake this morning and her daughter was at the bedside when entered the room he was eating pudding with assistance however had a coughing spell afterwards He was able to tell me that he is feeling fine did not complain of any chest pain shortness of breath abdominal pain however was not able to tell me his daughter's name Yesterday family decided to pursue comfort measures currently he is awaiting placement to a penitentiary at [facility] Vitals/I&O/Wt Last Vital Signs Temp 99.1 F 05/19/20 10:56 Pulse 76 05/19/20 10:56 Resp 18 05/19/20 10:56 BP 141/75 05/19/20 10:56 Pulse Ox 92 05/19/20 10:56 05/18/20 05/19/20 05/19/20 22:59 06:59 14:59 Intake Total 110 / 550 0 / 0 Output Total 0 / 0 Balance 110 / 550 0 / 0 Physical Exam Narrative: EXAM NARRATIVE: elderly male was eating pudding when entered the room today He was wide-awake however was not able to tell me name of his daughter He did not endorse any chest pain abdominal pain Experienced bouts of cough after eating pudding Hemodynamically stable, afebrile Lower extremity no edema gangrene or ulcer He is wearing adult diapers Abdomen is soft nontender Resting tremors myoclonus similar intensity as yesterday he is not able to feed himself because of tremors, able to hold his head at stable position No ptosis noted Left-sided facial droop present Data : 05/18/20 04:28 05/18/20 04:28 Micro: Microbiology 05/17/20 15:15 Urine Culture - Preliminary Urine,Clean Catch A&P Additional A&P Information Encephalopathy with myoclonus 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, carries guarded prognosis currently decided to pursue comfort measures yesterday Currently awaiting placement to a penitentiary where he can benefit from comfort/hospice care Mentation is fluctuant, Daughter is in the room, her questions were answered to her satisfaction, today social workers were updated who have started his paperwork to get him accepted at [facility] near his older son Daughter's phone number [phone] Jaydon Lamas older son [phone] Aspiration pneumonia Off antibiotics currently afebrile High risk for aspiration Carotid artery stenosis carotid stenosis left-sided 65% Right side 22%, not a candidate of interv HAIDER: Resolved, Sepsis: Resolved Attestations Medical Necessity Statement*: Patient is currently awaiting placement, currently on comfort care Time Spent in Patient Care: 20mins Coding Level of Care Code Acute Bill Collector for Kae Osuna
[2020-05-19] MEDS: haloperidol inj 5 mg/mL INJ 1 mL 2 MG IM (20:10)
--- NOTE | 2020-05-19 20:29 | PC.NURSE ---
REPOSITIONED PT, CHANGED BRIEF, PERFORMED ORAL CARE, AND FIXED TURN SHEET AND PAD UNDERNEATH PT.
[2020-05-19] MEDS: LORazepam 2 mg/mL INJ 1 mL 1 MG IVP (22:53)
[2020-05-20 00:34] VITALS: RESP 17
[2020-05-20] MEDS: LORazepam 2 mg/mL INJ 1 mL 1 MG IVP ×4 (00:34→07:33)
[2020-05-20 05:19] VITALS: RESP 18; O2SAT 92
[2020-05-20 07:34] VITALS: BP 90/57; PULSE 102; RESP 23; TEMP 36.7; O2SAT 56
--- NOTE | 2020-05-20 09:26 | PM.DDS ---
Discharge Providers DDS Date of Admission: 05/11/20 16:52 Date Summary Completed: 05/20/20 Attending Provider at Admission: Andrew Sesay Time of : 08:14 Attending Provider at Discharge: MD CHAYA De Anda Diagnoses Hospital Diagnoses (1) Lung mass: (2) Sepsis: (3) HAIDER (acute kidney injury): (4) Carotid stenosis: (5) Myoclonus: (6) Dystonia: Reason for Visit Reason for Visit: SHAKING Summary Date and Time of Date of : 05/20/20 Time of : 08:14 Summary Summary: 61-year-old gentleman who was functional about 2 months ago before admission to the hospital came in with debilitating progressive dystonia and myoclonus. It initially started in his right arm and progressed to bilateral upper and lower extremities. With progressive memory loss visual acuity loss he was disabled to the point of not been able to live independently. He was seen by neurology for suspicion of neurodegenerative disorder, CJD however on further assessment left lung mass was found invading multiple lobes as well as into aorta. Pulmonology was consulted who did bronchoscopy and biopsy of the mass. 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 His mental status was fluctuating throughout his hospitalization and he was rapidly declining, he never got out of bed, he was experiencing aspiration as well failed swallow evaluation, he was treated for aspiration pneumonia during hospitalization. His hospitalization was complicated due to on and off episode of confusion paranoia restlessness for which antipsychotics were used however he had intervals of lucidity in between. Dr. Sesay admitted him and signed off to me. I discussed his case with Dr. Gotti as well who recommended hospice/palliative care due to his poor functional status and being not a good candidate for chemotherapy. Multiple family meetings were conducted. Clinical findings and prognosis were explained to them, both son and the daughter seemed receptive and all of their questions were answered to their satisfaction. He was not a candidate for MRI as well because of bone metal plate, NMDA & antihue antibodies are pending. PET scan or lumbar puncture studies were not pursued while we were waiting for preliminary pathology results. His mentation and functional status decline rapidly & aggressively to the point that he was not able to recognize his family members, was experiencing aspiration with pur?ed thickened diet and not able to get up from his bed at all, family decided to pursue comfort measures on 05/19/2020. He on 05/20/2020 at 8:14 AM. 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 Additional Data Confirmation of as documented by pronouncing clinician: no pulse Family: at bedside Additional persons at bedside: nursing staff Was code activated?: No Autopsy requested?: No Advance directives?: No Hospice patient?: No (Was on comfort care since 05/19/2020) Discharge Plan Discharge Patient Disposition: Condition: Stable Prescriptions: No Action atenolol 100 mg Tablet 50 mg PO QAM RF: 0 amlodipine 10 mg Tablet 10 mg PO QAM RF: 0 lisinopril 40 mg Tablet 40 mg PO QAM RF: 0 Probable Cause of Probable cause of : Cardiac arrest DS Attestations Time Spent in /Discharge Care*: less than 30 min Quality - AMI: AMI present?: No Quality - Stroke: CVA present?: No Symptom Onset Unknown: No Quality - VTE: VTE present?: No Deep Vein Thrombosis/Pulmonary Embolism Present on Admission: No Coding Level of Care Code Acute Teacher Education Instructor for g Fwd Diagnoses Lung mass R91.8 Sepsis A41.9 HAIDER (acute kidney injury) N17.9 Carotid stenosis I65.29 Myoclonus G25.3 Dystonia G24.9
--- NOTE | 2020-05-20 09:40 | PC.CHAP ---
Pastoral Care Encounter/Spiritual Assessment Type of Contact [] Declined bioinformatics computer scientist visit [] Patient/Family/Request visit [] Outpatient visit [] Follow-up visit [] Physician referral [] Code/Alert [] Routine visit [x] Staff referral [] Actively dying [] Patient sleeping [] Family support [x] [] Out of room [] Palliative care [] [] Receiving care in room [] Pre-surgical visit [] Trauma [] Long length of stay [] ICU visit [] Other: Relational/Emotional Strength [] Patient feels connected with others/family/visitors/staff [] Distress [] Loneliness/isolation [] Abandonment Spirituality of Patient [] Person of Gena [] Attends Orthodoxy of their Gena [] Believes in Prayer [] Reads Bible or Jew materials [] There are Spiritual issues to be addressed Waiter/Waitress Tourist Class Interventions [] Prayer [] Active listening [] Non-anxious presence [] Spiritual/emotional support [] Crisis/trauma care [] Spiritual counseling [] Bereavement support [] Provided bereavement packet [] Provided Bible/devotional materials [] Provided toy/stuffed animal, coloring book to patient or family member [] Provided Communion [] Anointing/[place] [] Salvation [x] Completed spiritual assessment [] Other: Impact on Illness or Injury [] Angry [] Fearful [] Anxious [] Often cries [] Exhaustion [] Unable to work [] Unable to attend restoration [] Unable to walk/stand [] Unable to read [] Unable to drive [] Unable to eat/drink [] Unable to sleep [] Unable to be with family [] Patient intubated [] Other: Summary had prayer with family they are doing ok Time spent with patient 15 min
--- NOTE | 2020-05-20 12:11 | PC.NURSE ---
pt left to [facility] at 1158, assisted bottle house cleaners supervisor with transfer
== END 2020-05-20 11:58 | disposition expired | DRG 180 ==
LOC: ER 13:39 → MEDSURG 17:52
PROVIDERS: Internal Medicine Critical Care Medicine; Admitting Provider Internal Medicine; Emergency Provider Family Medicine; Visit Provider Internal Medicine
PROC: BB4BZZZ Ultrasonography of Pleura (ICD-10-PCS; principal; 2020-05-14 12:00)
PROC: 0BJ08ZZ Inspection of Tracheobronchial Tree, Via Natural or Artificial Opening Endoscopic (ICD-10-PCS; CPT 31622; 2020-05-14 12:00)
DX: C34.02 Malignant neoplasm of left main bronchus (principal); A41.9 Sepsis, unspecified organism; J69.0 Pneumonitis due to inhalation of food and vomit; N17.9 Acute kidney failure, unspecified; G93.40 Encephalopathy, unspecified; Q61.02 Congenital multiple renal cysts; A81.00 Creutzfeldt-Jakob disease, unspecified; G13.0 Paraneoplastic neuromyopathy and neuropathy; I65.29 Occlusion and stenosis of unspecified carotid artery; G25.3 Myoclonus; G24.9 Dystonia, unspecified; Z51.5 Encounter for palliative care; F17.210 Nicotine dependence, cigarettes, uncomplicated; M54.40 Lumbago with sciatica, unspecified side; M48.02 Spinal stenosis, cervical region; F02.80 Dementia in other diseases classified elsewhere, unspecified severity, without behavioral disturbance, psychotic disturbance, mood disturbance, and anxiety
CPT/HCPCS: 31625; 31627; 36415; 36416; 51798; 70450; 70496; 70498; 71045; 71250; 76705; 80053; 80202; 80306; 81001; 82607; 82746; 82962; 83516; 83605; 85025; 87040; 87086; 87426; 88305; 92523; 92526; 92610; 93005; 93971; 96372; 97161; 97166; 97530; 99285; J0171; J0692; J1630; J1644; J1956; J2060; J2704; J3010; J3370; J7030; Q9967